=== PATIENT | female | born 1940 | race Two or more races ===

== ENCOUNTER 2017-10-12 11:36 | Emergency (ER) | payer OTHER ==
[~2017-10-12] VITALS: Ht 152.4 cm; Wt 57.2 kg
[~2017-10-12 11:36] MED LIST: ATEN-60; BACL10TA; CIME-52; CLOP75TA41 PO; DONE5TAB9; DOXY25TA19 PO; FEBU40TA PO; FER325T PO; FOLI1TAB6; HYDR200T36 PO; HYDR25TA4; LEFL20TA16 PO; LEVO13CA; LISI-275 PO; LORA-653 PO; OXYB5TAB62; TEMA15CA; TRAM50TA2 PO; VERA200C4 PO; [UNRECOGNIZED DRUG - CODE] PO; [UNRECOGNIZED DRUG - OTHER]
[2017-10-12 12:21] VITALS: BP 167/85
[2017-10-12] MEDS ORDERED: ACETAMINOPHEN 325 MG TAB PO ONE ×2 (13:07→13:15)
== END 2017-10-12 14:45 | disposition home or self-care (01) ==
LOC: ER 11:36
DX: S05.11XA Contusion of eyeball and orbital tissues, right eye, initial encounter (principal); R60.9 Edema, unspecified; I10 Essential (primary) hypertension; I25.10 Atherosclerotic heart disease of native coronary artery without angina pectoris; Z88.6 Allergy status to analgesic agent
CPT/HCPCS: 70486

== ENCOUNTER 2017-12-09 15:13 | Emergency (ER) | payer OTHER ==
[~2017-12-09] VITALS: Ht 149.9 cm; Wt 59.0 kg
[2017-12-09 15:55] VITALS: BP 137/65
[2017-12-09] MEDS ORDERED: cefTRIAXone SOD 1,000 MG VL IM ONE (16:15)
[2017-12-09] MEDS ORDERED: PHENAZOPYRIDINE HCL 100 MG TAB PO ONE (16:15)
== END 2017-12-09 16:45 | disposition home or self-care (01) ==
LOC: ER 15:13
DX: N39.0 Urinary tract infection, site not specified (principal); M19.90 Unspecified osteoarthritis, unspecified site; I25.10 Atherosclerotic heart disease of native coronary artery without angina pectoris; I10 Essential (primary) hypertension; Z79.899 Other long term (current) drug therapy; Z87.440 Personal history of urinary (tract) infections; Z88.8 Allergy status to other drugs, medicaments and biological substances; Z79.891 Long term (current) use of opiate analgesic
CPT/HCPCS: 81002; 96372; 99283; J0696

== ENCOUNTER 2017-12-27 11:15 | Emergency (ER) | payer OTHER ==
[~2017-12-27] VITALS: Ht 152.4 cm; Wt 59.0 kg
[2017-12-27 15:22] VITALS: BP 177/95
[2017-12-27] MEDS ORDERED: HYDROcodone-ACET 5/325MG TAB PO ONE (15:30)
== END 2017-12-27 16:23 | disposition home or self-care (01) ==
LOC: ER 11:19
DX: S60.212A Contusion of left wrist, initial encounter (principal); M19.90 Unspecified osteoarthritis, unspecified site; I10 Essential (primary) hypertension; I25.10 Atherosclerotic heart disease of native coronary artery without angina pectoris; Z88.6 Allergy status to analgesic agent; W19.XXXA Unspecified fall, initial encounter; Y93.89 Activity, other specified; Y92.89 Other specified places as the place of occurrence of the external cause; Y99.8 Other external cause status
CPT/HCPCS: 29125; 73110

== ENCOUNTER 2018-04-13 15:20 | Emergency (ER) | payer OTHER ==
[~2018-04-13] VITALS: Ht 154.9 cm; Wt 57.2 kg
[~2018-04-13 15:20] MED LIST changes: +OXYB5TAB24; -OXYB5TAB62
[2018-04-13 15:47] VITALS: BP 164/93
== END 2018-04-13 17:18 | disposition home or self-care (01) ==
LOC: ER 15:36
DX: S01.01XA Laceration without foreign body of scalp, initial encounter (principal); S93.402A Sprain of unspecified ligament of left ankle, initial encounter; I10 Essential (primary) hypertension; M19.90 Unspecified osteoarthritis, unspecified site; I25.10 Atherosclerotic heart disease of native coronary artery without angina pectoris; Z88.6 Allergy status to analgesic agent; Z87.440 Personal history of urinary (tract) infections; Z79.899 Other long term (current) drug therapy; X50.1XXA Overexertion from prolonged static or awkward postures, initial encounter; Y93.E9 Activity, other interior property and clothing maintenance; Y92.89 Other specified places as the place of occurrence of the external cause; Y99.8 Other external cause status
CPT/HCPCS: 12001; 70450

== ENCOUNTER 2018-04-22 11:23 | Emergency (ER) | payer OTHER ==
[~2018-04-22] VITALS: Ht 154.9 cm; Wt 59.0 kg
[2018-04-22 11:29] VITALS: BP 152/85
== END 2018-04-22 12:55 | disposition home or self-care (01) ==
LOC: ER 11:26
DX: S92.332A Displaced fracture of third metatarsal bone, left foot, initial encounter for closed fracture (principal); S92.342A Displaced fracture of fourth metatarsal bone, left foot, initial encounter for closed fracture; S92.352A Displaced fracture of fifth metatarsal bone, left foot, initial encounter for closed fracture; S82.892A Other fracture of left lower leg, initial encounter for closed fracture; M19.90 Unspecified osteoarthritis, unspecified site; I10 Essential (primary) hypertension; I25.10 Atherosclerotic heart disease of native coronary artery without angina pectoris; Z87.440 Personal history of urinary (tract) infections; Z48.02 Encounter for removal of sutures; Z88.6 Allergy status to analgesic agent; Z79.899 Other long term (current) drug therapy; W19.XXXA Unspecified fall, initial encounter; Y93.89 Activity, other specified; Y92.89 Other specified places as the place of occurrence of the external cause; Y99.8 Other external cause status
CPT/HCPCS: 29515; 73610; 73630

== ENCOUNTER 2018-11-11 10:49 | Emergency (ER) | payer OTHER ==
[~2018-11-11] VITALS: Ht 152.4 cm; Wt 54.4 kg
[2018-11-11 11:55] VITALS: BP 156/88
[2018-11-11] MEDS: ACETAMINOPHEN 325 MG TAB PO ONE ×2 (12:46→12:50)
== END 2018-11-11 12:58 | disposition home or self-care (01) ==
LOC: ER 10:57
DX: S46.912A Strain of unspecified muscle, fascia and tendon at shoulder and upper arm level, left arm, initial encounter (principal); S60.222A Contusion of left hand, initial encounter; M19.042 Primary osteoarthritis, left hand; I10 Essential (primary) hypertension; M19.90 Unspecified osteoarthritis, unspecified site; Z86.73 Personal history of transient ischemic attack (TIA), and cerebral infarction without residual deficits; Z88.6 Allergy status to analgesic agent; Z88.8 Allergy status to other drugs, medicaments and biological substances; Z79.899 Other long term (current) drug therapy; W01.0XXA Fall on same level from slipping, tripping and stumbling without subsequent striking against object, initial encounter; Y93.89 Activity, other specified; Y99.8 Other external cause status; Y92.89 Other specified places as the place of occurrence of the external cause
CPT/HCPCS: 73060; 73090; 73130

== ENCOUNTER 2018-12-29 10:37 | Inpatient (IN) | payer OTHER ==
[~2018-12-29] VITALS: Ht 152.4 cm; Wt 46.8 kg
[~2018-12-29 10:37] MED LIST changes: -DOXY25TA19 PO; +DOXY25TA21 PO; -LEVO13CA; +LEVO13CA2; -LORA-653 PO; +LORA0.5T11 PO
[2018-12-29 11:45] LABS: Basophils # (auto) 0.1 uL; Eosinophils # (auto) 0.2 uL; Hematocrit 35.1 % (36.0-46.0); Hemoglobin 11.8 g/dL (12.2-16.2); Lymphocytes # (auto) 0.9 uL; Lymphocytes % (auto) 24.3 % (10.0-50.0); Mean Corpuscular Hemoglobin 30.8 pg (28.0-32.0); Mean Corpuscular Hgb Conc. 33.5 g/dL (32.0-36.0); Monocytes # (auto) 0.4 uL; Monocytes % (auto) 11.2 % (0.0-12.0); Neutrophils # (auto) 2.1 uL; Neutrophils % (auto) 57.5 % (37.0-80.0); Platelet Count (auto) 199 10^3/uL (140-450); Red Blood Cells 3.82 10^6/uL (4.0-5.20); Red Cell Distribution Width 15.1 % (11.8-14.3); White Blood Cell 3.6 10^3/uL (4.4-10.8)
[2018-12-29 11:52] LABS: INR 1.15 (0.9-1.15)
[2018-12-29 12:01] LABS: Albumin 3.1 g/dL (3.4-5.0); Calcium 8.2 mg/dL (8.5-10.1)
[2018-12-29 12:07] LABS: BUN/Creatinine Ratio 12.5; Bilirubin, Total 0.4 mg/dL (0.2-1.0); Total Protein 6.4 g/dL (6.4-8.2)
[2018-12-29 12:26] LABS: Potassium 2.6 mmol/L (3.5-5.1)
[2018-12-29] MEDS ORDERED: POTASSIUM EFFERVESENT TAB 25 MEQ PO ONE ×2 (12:30→15:45)
[2018-12-29] MEDS ORDERED: traMADol HCL 50 MG TAB PO ONE (13:00)
[2018-12-29] MEDS ORDERED: FUROSEMIDE 40 MG/4 ML VIAL IV ONE (14:30)
[2018-12-29] MEDS ORDERED: POTASSIUM EFFERVESENT TAB 25 MEQ GT ONE (14:30)
[2018-12-29] MEDS ORDERED: LACTULOSE 20Gm/30ML SOLN PO PRN (15:00)
[2018-12-29] MEDS ORDERED: NITROGLYCERIN 0.4 MG SL TAB SL PRN (15:00)
[2018-12-29] MEDS ORDERED: MORPHINE SULF INJ 2 MG/ML SYRINGE 1ML IV PRN (15:00)
[2018-12-29 15:31] LABS: Urine Bacteria NONE SEEN /hpf (None Seen); Urine Blood Negative /uL (Negative); Urine Mucus FEW (None Seen); Urine WBC 9 /hpf (0 - 5)
--- NOTE | 2018-12-29 19:30 | NUR ---
Opening Shift Note Assumed care of patient, awake and alert. No S/S of distress/SOB or pain. Instructed on POC and to call for assist PRN, will continue to monitor for changes Q1hr and PRN.
[2018-12-29] MEDS: traMADol HCL 50 MG TAB PO PRN (20:26)
[2018-12-29] MEDS: DONEPEZIL HYDROCHLORIDE 5 MG TAB PO SCH (21:38)
[2018-12-29] MEDS: TEMAZEPAM 15 MG CAP PO PRN (21:38)
[2018-12-29] MEDS: CARVEDILOL 3.125 MG TAB PO SCH (21:40)
[2018-12-29] MEDS: VERAPAMIL HCL 200 MG PO SCH (21:42)
[2018-12-29 21:50] VITALS: BP 130/95
[2018-12-30 04:46] VITALS: BP 89/66
[2018-12-30] MEDS: LEVOTHYROXINE SODIUM 25 MCG TAB PO SCH (06:11)
[2018-12-30 06:36] LABS: Basophils # (auto) 0 uL; Basophils % (auto) 1.2 % (0.0-2.0); Eosinophils # (auto) 0.2 uL; Eosinophils % (auto) 5.5 % (0.0-7.0); Hematocrit 30.6 % (36.0-46.0); Hemoglobin 10.5 g/dL (12.2-16.2); Lymphocytes # (auto) 0.7 uL; Mean Corpuscular Hemoglobin 31.8 pg (28.0-32.0); Mean Corpuscular Hgb Conc. 34.3 g/dL (32.0-36.0); Mean Corpuscular Volume 92.6 fL (80.0-100.0); Monocytes # (auto) 0.5 uL; Monocytes % (auto) 16.4 % (0.0-12.0); Neutrophils # (auto) 1.8 uL; Neutrophils % (auto) 54.9 % (37.0-80.0); Nucleated Red Blood Cells % 0.1 %; Platelet Count (auto) 153 10^3/uL (140-450); Red Cell Distribution Width 15.3 % (11.8-14.3); White Blood Cell 3.2 10^3/uL (4.4-10.8)
[2018-12-30 06:52] LABS: Albumin 2.8 g/dL (3.4-5.0); Potassium 3.7 mmol/L (3.5-5.1)
[2018-12-30 06:55] LABS: BUN/Creatinine Ratio 12.2; Bilirubin, Total 0.4 mg/dL (0.2-1.0); Calcium 7.7 mg/dL (8.5-10.1); Total Protein 5.7 g/dL (6.4-8.2)
[2018-12-30 07:50] VITALS: BP 95/59
--- NOTE | 2018-12-30 07:50 | NUR ---
OPENING SHIFT NOTE PATIENT LAYING IN BED WITH EYES CLOSED CHEST RISE AND FALL VISUALIZED. BED IN LOWEST LOCKED POSITION CALL LIGHT WITH IN REACH. BOARD UPDATED WILL CONTINUE TO MONITOR
[2018-12-30 08:00] VITALS: BP 90/65
--- NOTE | 2018-12-30 09:39 | NUR ---
REASSESSED BP106/65MMHG
[2018-12-30] MEDS: LEVOFLOXACIN 500MG 100 ML IV SCH (09:50)
[2018-12-30] MEDS: PANTOPRAZOLE 40 MG TAB PO SCH (09:51)
[2018-12-30] MEDS: LISINOPRIL 5 MG TAB PO SCH (09:52)
[2018-12-30] MEDS: CLOPIDOGREL BISULFATE 75 MG TAB PO SCH (09:52)
[2018-12-30] MEDS: ENOXAPARIN SOD 40 MG/0.4 ML SYRINGE SC SCH (09:54)
[2018-12-30] MEDS: CARVEDILOL 3.125 MG TAB PO SCH ×2 (09:54→21:22)
[2018-12-30] MEDS: NITROGLYCERIN 0.2MG/HR TOPICAL PATCH TD SCH (09:55)
[2018-12-30] MEDS ORDERED: FUROSEMIDE 40 MG/4 ML VIAL IV SCH (10:00)
[2018-12-30] MEDS ORDERED: POTASSIUM CHL 20 Meq TABLET PO SCH (10:00)
[2018-12-30] MEDS ORDERED: FENO160T8 PO (11:24)
[2018-12-30] MEDS ORDERED: BUSP5TAB51 PO (11:24)
[2018-12-30] MEDS ORDERED: ESCI10TA PO (11:24)
[2018-12-30] MEDS ORDERED: LEVO25TA6 PO (11:24)
[2018-12-30] MEDS ORDERED: FESO4TAB PO (11:24)
[2018-12-30] MEDS ORDERED: HYDR-4188 OR (11:24)
[2018-12-30] MEDS ORDERED: CLON0.1T PO (11:24)
--- NOTE | 2018-12-30 12:11 | NUR ---
RESPIRATORY CULTURE SENT
[2018-12-30 12:27] VITALS: BP 90/65
[2018-12-30] MEDS: traMADol HCL 50 MG TAB PO PRN ×2 (14:33→21:20)
[2018-12-30 17:06] VITALS: BP 101/74
--- NOTE | 2018-12-30 18:46 | NUR ---
END OF SHIFT NOTE PATIENT AWAKE AND ALERT DENIES ANY PAIN, SOB OR DISTRESS. ASSISTED PATIENT WITH TV. BED IN LOWEST LOCKED POSITION CALL LIGHT WITHIN REACH. WILL ENDORSE CARE TO NOC RN
[2018-12-30 21:13] VITALS: BP 122/76
[2018-12-30] MEDS: TEMAZEPAM 15 MG CAP PO PRN (21:20)
[2018-12-30] MEDS: DONEPEZIL HYDROCHLORIDE 5 MG TAB PO SCH (21:21)
[2018-12-30] MEDS: VERAPAMIL HCL 200 MG PO SCH (21:22)
[2018-12-31 05:07] VITALS: BP 103/68
[2018-12-31] MEDS: traMADol HCL 50 MG TAB PO PRN ×2 (05:39→20:11)
[2018-12-31] MEDS: LEVOTHYROXINE SODIUM 25 MCG TAB PO SCH (06:15)
--- NOTE | 2018-12-31 07:35 | NUR ---
OPENING SHIFT NOTE PATIENT AWAKE ALERT AND ORIENTED X4 IN BED EATING BREAKFAST. VERBALIZED UNDERSTANDING DAYS POC. PATIENT STATED SHE IS FEELING BETTER TODAY DENYING ANY PAIN, SOB OR ANY DISTRESS. BED IS IN LOWEST LOCKED POSITION CALL LIGHT WITH IN REACH WILL CONTINUE TO MONITOR
[2018-12-31 08:00] VITALS: BP 123/79
[2018-12-31 08:03] LABS: Calcium 7.9 mg/dL (8.5-10.1); Potassium 3.6 mmol/L (3.5-5.1)
[2018-12-31] MEDS: LEVOFLOXACIN 500MG 100 ML IV SCH (10:46)
[2018-12-31] MEDS: FUROSEMIDE 40 MG/4 ML VIAL IV SCH ×2 (10:46→21:32)
[2018-12-31] MEDS: NITROGLYCERIN 0.2MG/HR TOPICAL PATCH TD SCH (10:47)
[2018-12-31] MEDS: ENOXAPARIN SOD 40 MG/0.4 ML SYRINGE SC SCH (10:47)
[2018-12-31] MEDS: CLOPIDOGREL BISULFATE 75 MG TAB PO SCH (10:48)
[2018-12-31] MEDS: PANTOPRAZOLE 40 MG TAB PO SCH (10:48)
[2018-12-31] MEDS: POTASSIUM CHL 20 Meq TABLET PO SCH ×2 (10:48→21:32)
[2018-12-31] MEDS: LISINOPRIL 5 MG TAB PO SCH (10:48)
[2018-12-31] MEDS: CARVEDILOL 3.125 MG TAB PO SCH ×2 (10:49→21:33)
[2018-12-31 12:30] VITALS: BP 110/67
[2018-12-31 17:15] VITALS: BP 128/78
--- NOTE | 2018-12-31 18:51 | NUR ---
END OF SHIFT NOTE PATIENT AWAKE AND ORIENTED X4 EATING DINNER. DENIES PAIN, SOB AND ANY DISTRESS. BED IN LOWEST LOCKED POSITION CALL LIGHT WITH IN REACH. ENDORSE CARE TO NOC RN
--- NOTE | 2018-12-31 19:15 | NUR ---
Opening Shift Note Assumed care of patient, awake and alert. No S/S of distress/SOB or pain. bed side report with day RN Aura. Instructed on POC and to call for assist PRN, will continue to monitor for changes Q1hr and PRN. Bed locked and in lowest position, HOB elevated. Safety Precautions in place
[2018-12-31 21:19] VITALS: BP 122/86
[2018-12-31] MEDS: TEMAZEPAM 15 MG CAP PO PRN (21:33)
[2018-12-31] MEDS: VERAPAMIL HCL 200 MG PO SCH (21:33)
[2018-12-31] MEDS: DONEPEZIL HYDROCHLORIDE 5 MG TAB PO SCH (21:33)
--- NOTE | 2018-12-31 22:49 | NUR ---
FAMILY ON THE PHONE Password was provided, informed pt status and informed that for results MD has to discuss with patient first, i am unable to release test results. family member understood will continue to monitor pt.
[2019-01-01] VITALS (8 sets, daily range): BP systolic 122–146; BP diastolic 78–92
--- NOTE | 2019-01-01 | NUR ---
PT ROUNDS PT resting,pt on oxygen no s/sx's of distress or sob noted
[2019-01-01] MEDS: LEVOTHYROXINE SODIUM 25 MCG TAB PO SCH (06:14)
[2019-01-01] MEDS: traMADol HCL 50 MG TAB PO PRN ×2 (06:15→14:04)
--- NOTE | 2019-01-01 06:37 | NUR ---
HOSPITALIST TELEPHONE ORDER Informed pt complain of SOB a few times, TELEPHONE ORDER READ BACK Albuterol 2.5 Q3 PRN Atrovent 0.5 Q3 PRN
--- NOTE | 2019-01-01 06:54 | NUR ---
CLOSING NOTE PT resting no s/sx;s of distress or sob noted, pt on oxygen will endorse report to day RN
--- NOTE | 2019-01-01 07:00 | NUR ---
Respiratory note: PT AWAKE, AND ALERT. NO RESPIRATORY DISTRESS NOTED. SPO2 97% ON 3L NC, HR 67, RR 18, BS CLEAR T/O. PRN MEDNEB TX NOT INDICATED AT THIS TIME. PT INFORMED TO PUSH CALL BUTTON IF INCREASED WOB, SOB, OR WHEEZING OCCURS.
--- NOTE | 2019-01-01 07:35 | NUR ---
Opening Shift Note Assumed care of patient, awake and alert. No S/S of distress/SOB or pain reported at this time, Instructed on POC and to call for assist PRN, bed alarm activated and call light within reach, able to demonstrate how to call for assist, You present, patent and free of any kinds, will continue to monitor for changes Q1hr and PRN.
[2019-01-01] MEDS: CLOPIDOGREL BISULFATE 75 MG TAB PO SCH (10:39)
[2019-01-01] MEDS: ENOXAPARIN SOD 40 MG/0.4 ML SYRINGE SC SCH (10:39)
[2019-01-01] MEDS: POTASSIUM CHL 20 Meq TABLET PO SCH ×2 (10:39→22:05)
[2019-01-01] MEDS: LEVOFLOXACIN 500MG 100 ML IV SCH (10:39)
[2019-01-01] MEDS: FUROSEMIDE 40 MG/4 ML VIAL IV SCH ×2 (10:39→22:06)
[2019-01-01] MEDS: PANTOPRAZOLE 40 MG TAB PO SCH (10:40)
[2019-01-01] MEDS: CARVEDILOL 3.125 MG TAB PO SCH ×2 (10:40→22:04)
[2019-01-01] MEDS: LISINOPRIL 5 MG TAB PO SCH (10:40)
[2019-01-01] MEDS: NITROGLYCERIN 0.2MG/HR TOPICAL PATCH TD SCH (10:41)
--- NOTE | 2019-01-01 12:38 | NUR ---
NUTRITION ASSESSMENT NOTES Please refer to link notes of nutrition screen form filed under the intervention section of the plan of care for further details. Est. Needs: 1450 kcal to 1750 kcal (25-30 kcal/kgBW), 46 gms to 58 gms pro (0.8-1.0 gms/kgBW). Will continue to monitor pertinent labs and reassess nutrient need prn Thank you. Addendum: 01/01/19 at [address] Amended: Links added.
--- NOTE | 2019-01-01 13:10 | NUR ---
MD AT BEDSIDE DISCUSSING POC WITH PT AND FAMILY, ECHO RESULTS DISCUSSED, CONT CARE
--- NOTE | 2019-01-01 19:10 | NUR ---
OPEN SHIFT NOTE PATIENT IS ALERT AND ORIENTED X4 SITTING UP IN BED, NO COMPLAINTS OF PAIN AT THIS TIME. RIGHT WRIST 20 GAUGE IS INTACT AND PATENT, SALINE LOCKED. PATIENT ON 1L NC. AND JIM IS INTACT AND PATENT. POC DISCUSSED WITH PATIENT AND QUESTIONS ANSWERED. BED IS LOCKED IN LOWEST POSITION WITH SIDE RAILS UP X2 FOR SAFETY. CALL LIGHT IS WITHIN REACH AND PATIENT IS ENCOURAGED TO CALL IF NEEDS ANYTHING. WILL CONTINUE TO ROUND Q1HR AND PRN.
[2019-01-01] MEDS: SPIRONOLACTONE 25 MG TAB PO SCH (19:25)
--- NOTE | 2019-01-01 19:29 | NUR ---
Respiratory note: PRN MED NEB TX NOT INDICATED AT THIS TIME. PT ON 1 L/M NC, NO SOB OR ANY OTHER ACUTE RESPIRATORY DISTRESS NOTICED. WILL CONTINUE TO MONITOR PT.
--- NOTE | 2019-01-01 20:52 | NUR ---
RT PAGED PATIENT REQUEST PRN BREATHING TREATMENT
[2019-01-01] MEDS: ALBUTEROL SULF 2.5 MG/0.5ML(0.5%) NEB SOLN NEB PRN (21:06)
[2019-01-01] MEDS: IPRATROPIUM BROM 0.5 MG/2.5ML INH SOL NEB PRN (21:06)
[2019-01-01] MEDS: VERAPAMIL HCL 200 MG PO SCH (22:00)
[2019-01-01] MEDS: DONEPEZIL HYDROCHLORIDE 5 MG TAB PO SCH (22:05)
--- NOTE | 2019-01-02 00:04 | NUR ---
RT PAGED PER PATIENT REQUEST, RESPIRATORY PAGED FOR PRN BREATHING TREATMENT.
[2019-01-02] MEDS: IPRATROPIUM BROM 0.5 MG/2.5ML INH SOL NEB PRN (00:49)
[2019-01-02] MEDS: ALBUTEROL SULF 2.5 MG/0.5ML(0.5%) NEB SOLN NEB PRN (00:49)
[2019-01-02 05:00] VITALS: BP 139/91
--- NOTE | 2019-01-02 06:10 | NUR ---
Respiratory note: PT IS AWAKE AND ALERT. NO RESPIRATORY DISTRESS NOTED. SPO2 98% ON RA, HR 67, RR 16, BS CLEAR T/O. PRN TX NOT INDICATED AT THIS TIME. PT INFORMED TO PUSH CALL BUTTON IF INCREASED WOB, SOB, OR WHEEZING OCCURS.
[2019-01-02] MEDS: LEVOTHYROXINE SODIUM 25 MCG TAB PO SCH (06:34)
[2019-01-02] MEDS: SPIRONOLACTONE 25 MG TAB PO SCH ×2 (06:34→18:42)
[2019-01-02 07:33] VITALS: BP 140/84
[2019-01-02 10:27] VITALS: BP 110/69
[2019-01-02] MEDS: FUROSEMIDE 40 MG/4 ML VIAL IV SCH ×2 (10:35→21:49)
[2019-01-02] MEDS: PANTOPRAZOLE 40 MG TAB PO SCH (10:36)
[2019-01-02] MEDS: ENOXAPARIN SOD 40 MG/0.4 ML SYRINGE SC SCH (10:36)
[2019-01-02] MEDS: CARVEDILOL 3.125 MG TAB PO SCH ×2 (10:36→21:50)
[2019-01-02] MEDS: NITROGLYCERIN 0.2MG/HR TOPICAL PATCH TD SCH (10:36)
[2019-01-02] MEDS: POTASSIUM CHL 20 Meq TABLET PO SCH ×2 (10:36→21:50)
[2019-01-02] MEDS: CLOPIDOGREL BISULFATE 75 MG TAB PO SCH (10:36)
[2019-01-02] MEDS: LEVOFLOXACIN 500MG 100 ML IV SCH (10:37)
[2019-01-02] MEDS: LISINOPRIL 5 MG TAB PO SCH (10:37)
[2019-01-02] MEDS: traMADol HCL 50 MG TAB PO PRN ×2 (11:02→18:44)
[2019-01-02 13:00] VITALS: BP 97/58
[2019-01-02 18:04] VITALS: BP 113/65
--- NOTE | 2019-01-02 19:15 | NUR ---
OPEN SHIFT NOTE PATIENT IS ALERT AND ORIENTED X4 ON 1L NC, RIGHT WRIST 20 GAUGE IS INTACT AND PATENT. PATIENT STATES 7/10 PAIN IN LEGS, BUT IS FEELING BETTER. POC DISCUSSED AND QUESTIONS ANSWERED. BED IS LOCKED IN LOWEST POSITION WITH SIDE RAILS UP X2 FOR SAFETY. CALL LIGHT IS WITHIN REACH AND PATIENT IS ENCOURAGED TO CALL IF NEEDS ANYTHING. WILL CONTINUE TO ROUND Q1HR AND PRN.
[2019-01-02] MEDS: DONEPEZIL HYDROCHLORIDE 5 MG TAB PO SCH (21:49)
[2019-01-02] MEDS: VERAPAMIL HCL 200 MG PO SCH (21:50)
[2019-01-02 22:00] VITALS: BP 104/56
[2019-01-02] MEDS: TEMAZEPAM 15 MG CAP PO PRN (23:15)
[2019-01-03 05:00] VITALS: BP 105/67
[2019-01-03 05:58] LABS: Basophils # (auto) 0 uL; Basophils % (auto) 0.9 % (0.0-2.0); Eosinophils # (auto) 0.1 uL; Eosinophils % (auto) 3.5 % (0.0-7.0); Hematocrit 37.2 % (36.0-46.0); Hemoglobin 12.6 g/dL (12.2-16.2); Lymphocytes # (auto) 0.6 uL; Mean Corpuscular Hemoglobin 31.1 pg (28.0-32.0); Mean Corpuscular Hgb Conc. 33.8 g/dL (32.0-36.0); Mean Corpuscular Volume 92.1 fL (80.0-100.0); Monocytes # (auto) 0.6 uL; Monocytes % (auto) 15.6 % (0.0-12.0); Neutrophils # (auto) 2.4 uL; Nucleated Red Blood Cells % 0.1 %; Platelet Count (auto) 145 10^3/uL (140-450); Red Blood Cells 4.04 10^6/uL (4.0-5.20); Red Cell Distribution Width 14.4 % (11.8-14.3); White Blood Cell 3.7 10^3/uL (4.4-10.8)
[2019-01-03] MEDS: SPIRONOLACTONE 25 MG TAB PO SCH ×2 (06:16→18:12)
[2019-01-03] MEDS: LEVOTHYROXINE SODIUM 25 MCG TAB PO SCH (06:16)
[2019-01-03 06:31] LABS: Potassium 3.6 mmol/L (3.5-5.1)
[2019-01-03 06:48] LABS: BUN/Creatinine Ratio 13.4; Calcium 9.3 mg/dL (8.5-10.1)
--- NOTE | 2019-01-03 08:57 | NUR ---
RT NOTE: PRN BREATHING TX. NOT INDICATED AT THIS TIME. PT. HR. 70, RR 16, POX 95% R/A. NO S/S OF RESPIRATORY DISTRESS NOTED.
[2019-01-03 09:00] VITALS: BP 129/70
--- NOTE | 2019-01-03 09:09 | NUR ---
assessment Patient is a 78 year old female who is alert and oriented. Prior to admission patient lived home with family and functioned with assistance from her [facility] caregiver Deena Lee [phone] who is patients granddaughter. Patient informed me she has a cane, fww, and a wheelchair for home use. Patient informed me her PCP is Dr Pena. Patient informed me she has good family support. Patient feels safe returning home on discharge. Patient has no post discharge needs at this time. Addendum: 01/03/19 at 0911 by Berta DE LA GARZA Amended: Links added.
[2019-01-03] MEDS: NITROGLYCERIN 0.2MG/HR TOPICAL PATCH TD SCH (10:00)
[2019-01-03] MEDS: CLOPIDOGREL BISULFATE 75 MG TAB PO SCH (10:14)
[2019-01-03] MEDS: LEVOFLOXACIN 500MG 100 ML IV SCH (10:14)
[2019-01-03] MEDS: FUROSEMIDE 40 MG/4 ML VIAL IV SCH (10:14)
[2019-01-03] MEDS: CARVEDILOL 3.125 MG TAB PO SCH (10:14)
[2019-01-03] MEDS: ENOXAPARIN SOD 40 MG/0.4 ML SYRINGE SC SCH (10:15)
[2019-01-03] MEDS: LISINOPRIL 5 MG TAB PO SCH (10:15)
[2019-01-03] MEDS: PANTOPRAZOLE 40 MG TAB PO SCH (10:15)
[2019-01-03] MEDS: POTASSIUM CHL 20 Meq TABLET PO SCH ×2 (10:16→21:39)
[2019-01-03] MEDS: traMADol HCL 50 MG TAB PO PRN ×2 (11:31→21:43)
[2019-01-03 13:00] VITALS: BP 97/48
[2019-01-03 16:53] VITALS: BP 102/75
[2019-01-03] MEDS: FUROSEMIDE 40 MG TAB PO SCH (18:13)
--- NOTE | 2019-01-03 19:10 | NUR ---
Opening Shift Note Received report from Laureen BOWLES. Assumed care of patient, awake and alert, family at bedside. No S/S of distress/SOB or pain. Instructed on POC and to call for assist PRN, will continue to monitor for changes Q1hr and PRN.
[2019-01-03 20:00] VITALS: BP 104/62
--- NOTE | 2019-01-03 21:20 | NUR ---
Respiratory note: PT ASSESSED FOR PRN MED NEB TX. HR 61, RR 18, SPO2 96% 0N R/A. NO SIGNS OF ANY RESPIRATORY DISTRESS NOTED. ADVISED PT TO CALL IF TX IS NEEDED.
[2019-01-03] MEDS: DONEPEZIL HYDROCHLORIDE 5 MG TAB PO SCH (21:39)
[2019-01-03] MEDS: VERAPAMIL HCL 200 MG PO SCH (21:40)
[2019-01-03] MEDS: CARVEDILOL 12.5 MG TAB PO SCH (21:40)
[2019-01-04] VITALS (7 sets, daily range): BP systolic 86–118; BP diastolic 53–76
[2019-01-04] MEDS ORDERED: CALCIUM CARB 500 MG CHEW TAB PO ONE (00:45)
[2019-01-04] MEDS: TEMAZEPAM 15 MG CAP PO PRN (01:44)
[2019-01-04] MEDS: SPIRONOLACTONE 25 MG TAB PO SCH ×2 (06:05→18:00)
[2019-01-04] MEDS: LEVOTHYROXINE SODIUM 25 MCG TAB PO SCH (06:05)
[2019-01-04] MEDS: FUROSEMIDE 40 MG TAB PO SCH ×2 (06:05→18:00)
[2019-01-04] MEDS: traMADol HCL 50 MG TAB PO PRN (06:06)
--- NOTE | 2019-01-04 09:00 | NUR ---
Respiratory note: PT ASSESSED FOR PRN MEDNEB TX. NO RESPIRATORY DISTRESS NOTED AT THIS TIME. SPO2 92% ON RA HR 60 RR 14 B/S DIMINISHED. PT AWARE TO HAVE RT PAGED IF THEY BECOME SOB.
[2019-01-04] MEDS: ENOXAPARIN SOD 40 MG/0.4 ML SYRINGE SC SCH (10:00)
[2019-01-04] MEDS: CLOPIDOGREL BISULFATE 75 MG TAB PO SCH (10:00)
[2019-01-04] MEDS: POTASSIUM CHL 20 Meq TABLET PO SCH ×2 (10:00→21:46)
[2019-01-04] MEDS: LISINOPRIL 5 MG TAB PO SCH (10:00)
[2019-01-04] MEDS: PANTOPRAZOLE 40 MG TAB PO SCH (10:00)
[2019-01-04] MEDS: NITROGLYCERIN 0.2MG/HR TOPICAL PATCH TD SCH (10:00)
[2019-01-04] MEDS: CARVEDILOL 12.5 MG TAB PO SCH ×2 (10:00→21:46)
--- NOTE | 2019-01-04 19:15 | NUR ---
Opening Shift Note Received report from Laureen BOWLES. Assumed care of patient, awake and alert, sittig on the edge of the bed. No S/S of distress/SOB or pain. Instructed on POC and to call for assist PRN, will continue to monitor for changes Q1hr and PRN.
[2019-01-04] MEDS: DONEPEZIL HYDROCHLORIDE 5 MG TAB PO SCH (21:46)
[2019-01-04] MEDS: VERAPAMIL HCL 200 MG PO SCH (21:47)
--- NOTE | 2019-01-04 22:35 | NUR ---
PT ASSESSED FOR PRN MEDNEB TX. NO RESPIRATORY DISTRESS NOTED AT THIS TIME. SPO2 95% ON ROOM AIR HR 62 RR 16 B/S CLEAR. PT AWARE TO HAVE RT PAGED IF THEY BECOME SOB.
[2019-01-05 00:23] VITALS: BP 124/64
[2019-01-05] MEDS: traMADol HCL 50 MG TAB PO PRN ×2 (00:24→22:13)
[2019-01-05 05:38] VITALS: BP 104/61
[2019-01-05] MEDS: SPIRONOLACTONE 25 MG TAB PO SCH ×2 (06:00→17:51)
[2019-01-05] MEDS: FUROSEMIDE 40 MG TAB PO SCH ×2 (06:00→17:52)
[2019-01-05] MEDS: LEVOTHYROXINE SODIUM 25 MCG TAB PO SCH (06:44)
[2019-01-05 07:37] VITALS: BP 104/62
[2019-01-05 08:28] VITALS: BP 97/58
[2019-01-05] MEDS: CARVEDILOL 12.5 MG TAB PO SCH ×2 (10:00→22:12)
[2019-01-05] MEDS: NITROGLYCERIN 0.2MG/HR TOPICAL PATCH TD SCH (10:00)
[2019-01-05] MEDS: LISINOPRIL 5 MG TAB PO SCH (10:00)
--- NOTE | 2019-01-05 10:35 | NUR ---
Respiratory note: ASSESSED PT FOR PRN MEDNEB TX. HR 56, RR 14, POX 93% ON 1L NC. BREATH SOUNDS CLEAR, NO S/S OF RESPIRATORY DISTRESS. MEDNEB TX NOT INDICATED AT THIS TIME. WROTE RT NAME AND PAGER NUMBER ON WHITEBOARD, ADVISED PT TO CALL FOR RT IF NEEDED.
[2019-01-05] MEDS: POTASSIUM CHL 20 Meq TABLET PO SCH ×2 (10:52→22:13)
[2019-01-05] MEDS: PANTOPRAZOLE 40 MG TAB PO SCH (10:53)
--- NOTE | 2019-01-05 11:39 | NUR ---
Nutrition Follow-up Notes Wt.: 42.2 kg Pt sleeping with no family by beside. per records pt to have thoracentesis on Tuesday. per nursing pt with no distress noted. pt is currently on 2 gm na diet with fluid restriction of 1200 ml with fair PO of avg 60% x 5 per RN doc Est. Needs: 1450 kcal to 1750 kcal (25-30 kcal/kgBW), 46 gms to 58 gms pro (0.8-1.0 gms/kgBW). Will continue to monitor pertinent labs and reassess nutrient need prn Labs: CREAT 1.27 H. rest lab wnl Skin: Erwin scale 19, low risk skin intact per RN doc GI: Pt had 1 BM yesterday per kineseologist. PES: Altered nutrition related lab values r/t acute/chronic medical condition aeb hypoglycemia, hypernatremia, elev. Cr, hypocalcemia and mild hypoalbuminemia Will continue to monitor PO intake, skin status, pertinent labs and weight trend. F/u in 3-5 days. Rec.: 1.) Consider Cardiac: 2 gms Na, Low Chol, Low Fat diet 2.) If Albumin level continues trending down, consider Prostat 1 pkt BID.3.) Continue close supervision and feeding assistance prn during meals 4.) Refer to RD for further nutrition education and weight monitoring upon discharged. 5.) Continue current plan of care
[2019-01-05 12:44] VITALS: BP 113/66
--- NOTE | 2019-01-05 14:48 | NUR ---
I faxed clinical information to [employer] including order for Life Vest.
[2019-01-05 16:48] VITALS: BP 90/46
--- NOTE | 2019-01-05 19:15 | NUR ---
Opening Shift Note Received report from bro RN. Assumed care of patient, awake and alert, lying in bed. No S/S of distress/SOB or pain. Instructed on POC and to call for assist PRN, will continue to monitor for changes Q1hr and PRN. Addendum: 01/06/19 at 0014 by HEATH OLIVO RN RN ADDITION: Bed in lowest locked position, side rails up x2, call light within reach.
--- NOTE | 2019-01-05 20:00 | NUR ---
PT ASSESSED, ON 2L NC, NO SOB NOTED. BS CLEAR/DIMINISHED
--- NOTE | 2019-01-05 20:47 | NUR ---
Regarding [employer] Received call from Ziyad at [employer]. Information for patient's life vest received and currently being processed. Per [facility], [employer] should arrive on Tuesday as patient's insurance is not available to be contacted until Tuesday. Phone number for Ziyad .
[2019-01-05] MEDS: VERAPAMIL HCL 200 MG PO SCH (22:00)
[2019-01-05] MEDS: SACUBITRIL-VALSARTAN 24mg/26mg TAB PO SCH (22:00)
[2019-01-05] MEDS: DONEPEZIL HYDROCHLORIDE 5 MG TAB PO SCH (22:13)
[2019-01-06 00:17] VITALS: BP 100/58
[2019-01-06] MEDS: SPIRONOLACTONE 25 MG TAB PO SCH ×2 (05:13→18:10)
[2019-01-06] MEDS: FUROSEMIDE 40 MG TAB PO SCH ×2 (05:13→18:10)
[2019-01-06] MEDS: LEVOTHYROXINE SODIUM 25 MCG TAB PO SCH (06:04)
[2019-01-06 06:08] VITALS: BP 97/57
--- NOTE | 2019-01-06 07:28 | NUR ---
Closing Note Patient lying in bed, eyes closed, respirations even and unlabored, appears asleep. No s/s of distress. Care endorsed to dayshift RN.
--- NOTE | 2019-01-06 07:45 | NUR ---
Patient in bed, asleep. No acute distress noted. Walker at bedside.
[2019-01-06 09:00] VITALS: BP 138/63
[2019-01-06] MEDS: NITROGLYCERIN 0.2MG/HR TOPICAL PATCH TD SCH (10:00)
[2019-01-06] MEDS ORDERED: ENOXAPARIN SOD 30 MG/0.3 ML SYRINGE SC SCH (10:00)
[2019-01-06] MEDS ORDERED: LISINOPRIL 10 MG TAB PO SCH (10:00)
[2019-01-06] MEDS: POTASSIUM CHL 20 Meq TABLET PO SCH ×2 (10:12→22:58)
[2019-01-06] MEDS: PANTOPRAZOLE 40 MG TAB PO SCH (10:12)
[2019-01-06] MEDS: traMADol HCL 50 MG TAB PO PRN (10:13)
[2019-01-06] MEDS: SACUBITRIL-VALSARTAN 24mg/26mg TAB PO SCH ×2 (10:13→22:00)
[2019-01-06] MEDS: CARVEDILOL 12.5 MG TAB PO SCH (10:13)
--- NOTE | 2019-01-06 10:13 | NUR ---
Patient complained of headache, at 8/10 at this time. Ultram PO given for headache.
[2019-01-06] MEDS ORDERED: TEMAZEPAM 15 MG CAP PO PRN (10:15)
--- NOTE | 2019-01-06 10:18 | NUR ---
Dr. Grubbs at bedside. explained to patient the plan for Thoracentesis and Stress Test. MD is aware patient's heart rate <60, will discontinue Verapamil.
[2019-01-06] MEDS ORDERED: MORPHINE SULF INJ 2 MG/ML SYRINGE 1ML IV PRN (10:30)
--- NOTE | 2019-01-06 11:43 | NUR ---
Respiratory note: ASSESSED PATIENT FOR PRN BREATHING TX, PATIENT IS AWAKE AND ALERT. NO RESPIRATORY DISTRESS NOTED. PATIENT IS ON ROOM AIR, SPO2 93%, HR 60, RR 18. NO BREATHING TX INDICATED AT THIS TIME, PT IS AWARE TO HAVE RT PAGED IF BREATHING TX IS NEEDED.
[2019-01-06] MEDS: ASPirin 81 mg TAB PO SCH (12:23)
[2019-01-06 13:00] VITALS: BP 149/71
--- NOTE | 2019-01-06 13:20 | NUR ---
Ziyad from [employer] came over, spoke with the patient. Ziyad to look for Dr. Grubbs to sign the form for [employer] for patient.
[2019-01-06 17:00] VITALS: BP 97/55
--- NOTE | 2019-01-06 19:22 | NUR ---
MIDLINE placement Patient/Patient significant other educated on need for MIDLINE placement. All risks and benefits explained and all questions and concerns addressed prior to procedure. Noted past medical history and allergies with no contraindications. INR and Plt counts within acceptable range. 4 fr MIDLINE inserted via left brachial vein using [employer] US and Tip Location System. Sterile technique with maximum barrier precautions utilized. Blood return obtained from the single lumen and it flushed easily with NS using proper technique. MIDLINE secured with Stat-lock; biodisc and occlusive dressing applied. Less than 5ml EBL noted during procedure. MIDLINE 20cm internally w/ 0cm externally. *Baseline Arm Circumference 24cm at 1cm above insertion site. MIDLINE lot # [id number]. Note:
--- NOTE | 2019-01-06 19:23 | NUR ---
OK to use MIDLINE Migue Rose notified now OK to use MIDLINE.
--- NOTE | 2019-01-06 19:25 | NUR ---
Opening Shift Note Received report from dayshift RN. Assumed care of patient, awake and alert, lying in bed. Bed in lowest locked position, side rails up x2, call light within reach. No S/S of distress/SOB or pain. Instructed on POC and to call for assist PRN, will continue to monitor for changes Q1hr and PRN.
--- NOTE | 2019-01-06 19:45 | NUR ---
IV removal IV to right wrist DC'd with clean sterile technique, catheter fully intact. Pressure dressing applied to site. Patient tolerated well. Midline to left upper arm still clean, dry, and patent. Will continue care.
[2019-01-06 22:37] VITALS: BP 137/76
[2019-01-06] MEDS: DONEPEZIL HYDROCHLORIDE 5 MG TAB PO SCH (22:57)
[2019-01-06] MEDS: ATORVASTATIN 20 MG TAB PO SCH (22:58)
[2019-01-06] MEDS: CARVEDILOL 3.125 MG TAB PO SCH (22:58)
--- NOTE | 2019-01-07 01:40 | NUR ---
PT SEEN SLEEPING IN BED ON 2L NC WITH SPO2 94%, BS CLEAR AND DIMINISHED. NO RESP DISTRESS NOTED. PRN NEB TX NOT GIVEN AT THIS TIME.
[2019-01-07 05:09] VITALS: BP 113/79
[2019-01-07] MEDS: SPIRONOLACTONE 25 MG TAB PO SCH ×2 (05:29→17:35)
--- NOTE | 2019-01-07 05:30 | NUR ---
Regarding morning medications Patient requesting morning medications early to allow for sleep. Will administer and continue to monitor.
[2019-01-07] MEDS: LEVOTHYROXINE SODIUM 25 MCG TAB PO SCH (05:33)
[2019-01-07] MEDS: FUROSEMIDE 40 MG TAB PO SCH ×2 (05:33→17:36)
[2019-01-07] MEDS: traMADol HCL 50 MG TAB PO PRN (05:34)
--- NOTE | 2019-01-07 07:05 | NUR ---
Closing Note Patient lying in bed, eyes closed, respirations even and unlabored, appears asleep. No s/s of distress. Care endorsed to dayshift RN.
--- NOTE | 2019-01-07 07:30 | NUR ---
Patient asleep, no acute distress noted. Walker at bedside. With bedside commode.
[2019-01-07 08:24] LABS: Basophils # (auto) 0 uL; Basophils % (auto) 0.7 % (0.0-2.0); Eosinophils # (auto) 0.1 uL; Eosinophils % (auto) 1.5 % (0.0-7.0); Hematocrit 39.5 % (36.0-46.0); Hemoglobin 13.4 g/dL (12.2-16.2); Lymphocytes # (auto) 0.7 uL; Lymphocytes % (auto) 16.3 % (10.0-50.0); Mean Corpuscular Volume 91.1 fL (80.0-100.0); Monocytes # (auto) 0.5 uL; Monocytes % (auto) 12.1 % (0.0-12.0); Neutrophils # (auto) 2.9 uL; Neutrophils % (auto) 69.4 % (37.0-80.0); Nucleated Red Blood Cells % 0.1 %; Platelet Count (auto) 141 10^3/uL (140-450); Red Blood Cells 4.33 10^6/uL (4.0-5.20); Red Cell Distribution Width 14.2 % (11.8-14.3); White Blood Cell 4.2 10^3/uL (4.4-10.8)
[2019-01-07 08:51] LABS: Albumin 3.4 g/dL (3.4-5.0); Calcium 9.4 mg/dL (8.5-10.1)
[2019-01-07 08:54] LABS: BUN/Creatinine Ratio 19.4; Bilirubin, Total 0.9 mg/dL (0.2-1.0); Total Protein 7.4 g/dL (6.4-8.2)
[2019-01-07 09:00] VITALS: BP 100/58
[2019-01-07] MEDS: ASPirin 81 mg TAB PO SCH (10:00)
[2019-01-07] MEDS: NITROGLYCERIN 0.2MG/HR TOPICAL PATCH TD SCH (10:00)
[2019-01-07] MEDS: PANTOPRAZOLE 40 MG TAB PO SCH (10:19)
[2019-01-07] MEDS: SACUBITRIL-VALSARTAN 24mg/26mg TAB PO SCH ×2 (10:20→22:00)
[2019-01-07] MEDS: POTASSIUM CHL 20 Meq TABLET PO SCH ×2 (10:20→22:48)
[2019-01-07] MEDS: CARVEDILOL 3.125 MG TAB PO SCH ×2 (10:20→22:47)
--- NOTE | 2019-01-07 12:20 | NUR ---
New IV line started on the right forearm, 24 Gauge, intact and patent. Patient able to tolerate it. Patient needs a second IV line for Stress Test tomorrow.
[2019-01-07 13:00] VITALS: BP 113/67
--- NOTE | 2019-01-07 14:30 | NUR ---
Family at bedside.
[2019-01-07 17:00] VITALS: BP 129/70
[2019-01-07 22:26] VITALS: BP 122/78
[2019-01-07] MEDS: ATORVASTATIN 20 MG TAB PO SCH (22:48)
[2019-01-07] MEDS: DONEPEZIL HYDROCHLORIDE 5 MG TAB PO SCH (22:48)
[2019-01-07] MEDS: ALBUTEROL SULF 2.5 MG/0.5ML(0.5%) NEB SOLN NEB PRN (23:30)
[2019-01-07] MEDS: IPRATROPIUM BROM 0.5 MG/2.5ML INH SOL NEB PRN (23:30)
[2019-01-08 03:31] VITALS: BP 95/60
[2019-01-08] MEDS: FUROSEMIDE 40 MG TAB PO SCH ×2 (05:54→18:09)
[2019-01-08] MEDS: LEVOTHYROXINE SODIUM 25 MCG TAB PO SCH (05:54)
[2019-01-08] MEDS: SPIRONOLACTONE 25 MG TAB PO SCH ×2 (05:54→18:09)
--- NOTE | 2019-01-08 05:57 | NUR ---
Respiratory note: PT AWAKE, AND ALERT. NO RESPIRATORY DISTRESS NOTED. SPO2 97% ON RA, HR 60, RR 18, BS CLEAR T/O. PRN TX NOT INDICATED AT THIS TIME. PT INFORMED TO PUSH CALL BUTTON IF INCREASED WOB, SOB, OR WHEEZING OCCUR. RN AT BEDSIDE.
[2019-01-08 06:13] VITALS: BP 134/69
--- NOTE | 2019-01-08 07:20 | NUR ---
Patient in bed, awake, oriented x4, no acute distress noted. On NPO.
--- NOTE | 2019-01-08 07:25 | NUR ---
Closing Note Patient lying in bed, eyes closed, respirations even and unlabored, appears asleep. No s/s of distress. Care endorsed to dayshift WILBUR. Addendum: 01/08/19 at 0741 by HEATH OLIVO RN RN CORRECTION: Time of note 07:20.
--- NOTE | 2019-01-08 08:00 | NUR ---
Patient has generalized weakness noted.
[2019-01-08 09:00] VITALS: BP 124/56
--- NOTE | 2019-01-08 09:10 | NUR ---
Patient asleep, no acute distress noted.
[2019-01-08] MEDS: ASPirin 81 mg TAB PO SCH (09:25)
[2019-01-08] MEDS: SACUBITRIL-VALSARTAN 24mg/26mg TAB PO SCH ×2 (09:26→22:11)
[2019-01-08] MEDS: NITROGLYCERIN 0.2MG/HR TOPICAL PATCH TD SCH (09:26)
[2019-01-08] MEDS: PANTOPRAZOLE 40 MG TAB PO SCH (09:26)
[2019-01-08] MEDS: POTASSIUM CHL 20 Meq TABLET PO SCH ×2 (09:33→22:12)
[2019-01-08] MEDS: CARVEDILOL 3.125 MG TAB PO SCH ×2 (09:33→22:12)
--- NOTE | 2019-01-08 09:39 | NUR ---
David from [facility] called, stated the patient is not answering the phone. Patient is sleepy. David to call back later.
--- NOTE | 2019-01-08 10:00 | NUR ---
Identification Technician Joyce Bergeron called. Planned Thoracentesis and Stress Test as per doctor's progress notes. Waiting for doctor to put in the order.
--- NOTE | 2019-01-08 10:55 | NUR ---
Dr. Toribio made aware patient has Thoracentesis planned but there's no orders put in yet. ordered to call Radiology.
--- NOTE | 2019-01-08 10:56 | NUR ---
Called Radiology. Spoke with WILBUR Chavarria if the Thoracentesis will be done today, Dr. Toribio will put in the order. Aura said she will speak to Dr. Lynn, she will call me back. Dr. Toribio made aware.
--- NOTE | 2019-01-08 11:45 | NUR ---
Dr. Toribio at bedside.
[2019-01-08 13:00] VITALS: BP 121/71
--- NOTE | 2019-01-08 13:04 | NUR ---
behaviour support teacher Aura called back. Aura said there's no orders for Thoracentesis yet, patient needs a new PTPTT. Will page Dr. Toribio.
--- NOTE | 2019-01-08 13:06 | NUR ---
Paged Dr. Toribio.
--- NOTE | 2019-01-08 13:19 | NUR ---
Called Dr. Toribio. made aware he did not put an order for Thoracentesis. Dr. Toribio gave a telephone order for Thoracentesis.
[2019-01-08 14:20] LABS: INR 1.03 (0.9-1.15); Partial Thromboplastin Time 27.9 sec (23.64-32.05)
--- NOTE | 2019-01-08 14:45 | NUR ---
I faxed authorization request for [employer] life vest to [employer].
--- NOTE | 2019-01-08 15:40 | NUR ---
Connie from Radiology called that Radiology Nurse leaves at 4:00 pm today, if there's a Nurse who will be at bedside the whole time at Room 215B for the Thoracentesis. Connie said to gather the supplies for Thoracentesis and has to be prepared at bedside. Informed Connie that I have four patient's today, I can't stay in the patient's room for the whole procedure if one of my other three patient's calls for me. Spoke with Charge Nurse Flora that Radiology Nurse leaves at 4:00 pm today as per Connie, no Nurse is available to be at bedside for the patient's Thoracentesis at Room 215B. Asked Connie if there's a Radiology Nurse tomorrow for Thoracentesis, Connie said she does not know if there's a Radiology Nurse tomorrow. Flora calls the Materials Unit for Vacu-container, not available as per Materials. Thoracentesis cannot be done today.
--- NOTE | 2019-01-08 15:50 | NUR ---
Tech from Nuclear Medicine to orange picker the patient for Cardiolite Multiple. Patient in the bathroom at this time.
--- NOTE | 2019-01-08 16:15 | NUR ---
Tech from Nuclear Medicine left. Patient still in the bathroom.
--- NOTE | 2019-01-08 16:20 | NUR ---
Bladimir from Nuclear Medicine called back. Bladimir made aware the Tech left because the patient took a while in the bathroom, I was told that Stress Test will not be done today, patient had Jello and cranberry juice. Bladimir said it's okay that patient ate, the first of the three-part of Stress Test will be done today.
--- NOTE | 2019-01-08 16:26 | NUR ---
Vidal Crain from Nuclear Medicine at bedside to transfer the patient to Nuclear Medicine. Daughter at bedside.
--- NOTE | 2019-01-08 16:45 | NUR ---
Request for peanut butter and jelly sandwich sent via fax to [employer].
[2019-01-08 17:00] VITALS: BP 119/76
--- NOTE | 2019-01-08 17:05 | NUR ---
Patient back to room from Nuclear Medicine. Patient has body weakness noted.
[2019-01-08 22:00] VITALS: BP 115/64
--- NOTE | 2019-01-08 22:10 | NUR ---
Respiratory note: PT SEEN AND ASSESSED FOR PRN MED NEB TX AT 2210. TX NOT INDICATED AT THIS TIME. PT STATED THAT SHE HAS NO ISSUES BREATHING RIGHT NOW. BREATH SOUNDS WERE CLEAR AND DIMINISHED BILATERALLY. HR 72 RR 16 POX 99% ON 1L NASAL CANNULA. PT AWARE TO CALL FOR RT IF ANY DISTRESS OCCURS.
[2019-01-08] MEDS: ATORVASTATIN 20 MG TAB PO SCH (22:11)
[2019-01-08] MEDS: DONEPEZIL HYDROCHLORIDE 5 MG TAB PO SCH (22:11)
[2019-01-09] VITALS (7 sets, daily range): BP systolic 89–148; BP diastolic 59–80
--- NOTE | 2019-01-09 | NUR ---
REMINDED PATIENT ON THE NOTHING BY MOUTH STATUS, PATIENT VERBALIZED UNDERSTANDING.
--- NOTE | 2019-01-09 06:00 | NUR ---
ROUNDS PATIENT IS ALERT AND AWAKE, RESTING IN BED WITH EYES CLOSED, NO DISTRESS NOTED.
[2019-01-09] MEDS: LEVOTHYROXINE SODIUM 25 MCG TAB PO SCH (06:21)
[2019-01-09] MEDS: FUROSEMIDE 40 MG TAB PO SCH (06:21)
[2019-01-09] MEDS: SPIRONOLACTONE 25 MG TAB PO SCH ×2 (06:21→18:31)
[2019-01-09 06:59] LABS: Basophils # (auto) 0 uL; Basophils % (auto) 0.6 % (0.0-2.0); Eosinophils # (auto) 0.1 uL; Eosinophils % (auto) 1.6 % (0.0-7.0); Hematocrit 42.2 % (36.0-46.0); Hemoglobin 14.1 g/dL (12.2-16.2); Lymphocytes # (auto) 1.2 uL; Lymphocytes % (auto) 23.7 % (10.0-50.0); Mean Corpuscular Hemoglobin 30.5 pg (28.0-32.0); Mean Corpuscular Hgb Conc. 33.5 g/dL (32.0-36.0); Mean Corpuscular Volume 91.1 fL (80.0-100.0); Monocytes # (auto) 0.6 uL; Monocytes % (auto) 12.4 % (0.0-12.0); Neutrophils % (auto) 61.7 % (37.0-80.0); Nucleated Red Blood Cells % 0.2 %; Platelet Count (auto) 166 10^3/uL (140-450); Red Blood Cells 4.63 10^6/uL (4.0-5.20); White Blood Cell 4.9 10^3/uL (4.4-10.8)
[2019-01-09 07:51] LABS: Calcium 9.4 mg/dL (8.5-10.1); Potassium 4.7 mmol/L (3.5-5.1)
--- NOTE | 2019-01-09 08:15 | NUR ---
Linda from Ultrasound called that there's no Radiology Nurse today, if I will be available to be at bedside the whole time during Thoracentesis. Lnida made aware I will inform my Charge Nurse because I have four patient's today, if the other three patient's call, somebody has to attend to them. Will call back Ultrasound.
[2019-01-09] MEDS ORDERED: ADENOSINE 39 MG in GIVE UN-DILUTED 0 ML IV STA (08:32)
--- NOTE | 2019-01-09 08:50 | NUR ---
Called Nuclear Medicine. Spoke with Bladimir that Nuclear Medicine called earlier that they will take the patient for the second part of Stress Test but patient is still in the room. Bladimir said patient stated she's too weak to get up from bed to wheelchair, they will take the patient via bed to Nuclear Medicine later.
--- NOTE | 2019-01-09 08:55 | NUR ---
Charge Nurse Flora made aware there's no Radiology Nurse today. Thoracentesis has to be done at bedside.
--- NOTE | 2019-01-09 09:15 | NUR ---
Assisted the patient with bedpan.
--- NOTE | 2019-01-09 09:39 | NUR ---
Called Bladimir at Nuclear Medicine that patient was able to walk with walker with assist from physical therapist. Bladimir to send a Tech to pick pulling machine tender the patient for the second part of Stress Test.
--- NOTE | 2019-01-09 09:45 | NUR ---
Charge Nurse Flora said she will assign another pie crust mixer to be at bedside during the Thoracentesis at Room 215B, she will call Ultrasound/Radiology.
[2019-01-09] MEDS: SACUBITRIL-VALSARTAN 24mg/26mg TAB PO SCH ×2 (10:00→21:56)
[2019-01-09] MEDS: PANTOPRAZOLE 40 MG TAB PO SCH (10:00)
[2019-01-09] MEDS: ASPirin 81 mg TAB PO SCH (10:00)
[2019-01-09] MEDS: NITROGLYCERIN 0.2MG/HR TOPICAL PATCH TD SCH (10:00)
--- NOTE | 2019-01-09 10:00 | NUR ---
Dr. linda came over, made aware Thoracentesis was not done yesterday because there was no Radiology Nurse available. Thoracentesis will be done at bedside today, second and third part of Stress test will be done today.
--- NOTE | 2019-01-09 10:22 | NUR ---
Patient off unit, taken to Nuclear Medicine for Stress Test.
--- NOTE | 2019-01-09 10:30 | NUR ---
Felt Pad Cutter came over looking for the patient. Patient at Nuclear Medicine for Stress Test.
--- NOTE | 2019-01-09 11:30 | NUR ---
Called Ultrasound that patient is back to room from Stress Test. Ultrasound to call me back when the Radiology doctor is ready.
[2019-01-09] MEDS: CARVEDILOL 3.125 MG TAB PO SCH ×2 (11:39→21:57)
[2019-01-09] MEDS: POTASSIUM CHL 20 Meq TABLET PO SCH ×2 (11:39→21:56)
--- NOTE | 2019-01-09 12:34 | NUR ---
Dr. Lynn from Radiology came over for Thoracentesis. No fluid in the patient's lungs. No need for Thoracentesis. Charge Nurse at bedside.
--- NOTE | 2019-01-09 13:10 | NUR ---
Patient had a bowel movement on bed. Large, soft, light brown stools noted. Cleaned the patient, changed the gown.
--- NOTE | 2019-01-09 14:25 | NUR ---
Patient had another bowel movement on bed. Moderate soft, yellowish brown stools noted. Cleaned the patient. Patient went to the bathroom with walker on standby assist. Daughter at bedside.
--- NOTE | 2019-01-09 14:35 | NUR ---
Dr. Toribio at bedside. Patient in the bathroom. MD made aware patient has periods of incontinence of urine and stools. Three bowel movements today. Dr. Toribio ordered C-diff, UA, Stool Bacterial Culture and Rat Exterminator Consult for SNF placement.
--- NOTE | 2019-01-09 15:30 | NUR ---
Specimen bottles for urine and stools provided. Explained to patient to press the call light when she has the urge to urinate or have bowel movement. Hat placed on the toilet bowl. Daughter at bedside.
--- NOTE | 2019-01-09 15:51 | NUR ---
I called [facility] [phone] and left message for case assembler Yasmin asking for authorization for [employer], awaiting return call. Addendum: 01/09/19 at 1555 by Joyce Bergeron RN I called Ziyad with [employer] to make him aware that the authorization needed to come from [employer] and that I was waiting to hear back from them.
--- NOTE | 2019-01-09 16:09 | NUR ---
Met with pt and Daughter, Chasity Lee, to ascertain whether pt wants to go down the hill for rehab. The pt has not made a definite decision but the daughter is in favor of it. The pt is alert and oriented and understands it is her choice. A bed will be secured.
--- NOTE | 2019-01-09 16:23 | NUR ---
re-assessment Per consult SNF placement. MD order has been sent to Alex Manuel and Laeh Avila Waiting for reply back now. Addendum: 01/09/19 at 1623 by Berta Sanches Amended: Links added.
--- NOTE | 2019-01-09 19:00 | NUR ---
Endorsed to shift mgr RN that patient has orders for UA, Stool Bacterial Culture and C-diff; specimen bottle provided to patient.
--- NOTE | 2019-01-09 19:20 | NUR ---
Opening Shift Note Received report from josesito Rose RN. Assumed care of patient, awake and alert. No S/S of distress/SOB or pain. Instructed on POC and to call for assist PRN, will continue to monitor for changes Q1hr and PRN. Bed placed in lowest position, bed alarm turned on and call light within reach.
--- NOTE | 2019-01-09 21:45 | NUR ---
Patient is c/o nausea and vomiting. Will give nausea medication.
[2019-01-09] MEDS: ATORVASTATIN 20 MG TAB PO SCH (21:56)
[2019-01-09] MEDS: DONEPEZIL HYDROCHLORIDE 5 MG TAB PO SCH (21:56)
[2019-01-09] MEDS: PROMETHAZINE HCL 25 MG/ML 1ML IV PRN (21:58)
[2019-01-09] MEDS: traMADol HCL 50 MG TAB PO PRN (22:09)
--- NOTE | 2019-01-09 22:15 | NUR ---
Respiratory note: PT SEEN AND ASSESSED FOR PRN MED NEB TX AT 2215. TX NOT INDICATED AT THIS TIME. PT DENIES ANY RESPIRATORY DISTRESS. BREATH SOUNDS WERE CLEAR AND DIMINISHED BILATERALLY. HR 64 RR 16 POX 96% ON 2L NASAL CANNULA. PT AWARE TO CALL FOR RT IF ANY DISTRESS OCCURS.
[2019-01-10 05:13] LABS: Urine Bacteria NONE SEEN /hpf (None Seen); Urine Blood Negative /uL (Negative); Urine Specific Gravity 1.012 (1.001-1.035); Urine WBC 41 /hpf (0 - 5)
[2019-01-10 05:45] VITALS: BP 101/65
[2019-01-10] MEDS: SPIRONOLACTONE 25 MG TAB PO SCH ×2 (06:39→17:47)
[2019-01-10] MEDS: LEVOTHYROXINE SODIUM 25 MCG TAB PO SCH (06:39)
--- NOTE | 2019-01-10 07:30 | NUR ---
OPENING NOTE ASSUMED CARE OF PT. ALERT AND ORIENTED. NO SIGNS OF SOB/DISTRESS NOTED. PT DENIES ANY PAIN. BED SET TO LOWEST POSITION/LOCKED. BEDSIDE RAILS UP X2. CALL LIGHT WITHIN REACH. INSTRUCTED PT TO CALL FOR ASSISTANCE. DISCUSSED POC. WILL CONTINUE TO MONITOR Q1HR AND PRN.
--- NOTE | 2019-01-10 08:42 | NUR ---
I called [employer] Scouring Pads Supervisor Yasmin Murray [phone] and left a second message (no return call from 1st message left yesterday) asking for authorization for [employer]-awaiting return call.
[2019-01-10 09:20] VITALS: BP 91/59
[2019-01-10] MEDS: NITROGLYCERIN 0.2MG/HR TOPICAL PATCH TD SCH (10:00)
[2019-01-10] MEDS: SACUBITRIL-VALSARTAN 24mg/26mg TAB PO SCH (10:00)
[2019-01-10] MEDS: CARVEDILOL 3.125 MG TAB PO SCH (10:00)
[2019-01-10] MEDS: POTASSIUM CHL 20 Meq TABLET PO SCH (10:07)
[2019-01-10] MEDS: ASPirin 81 mg TAB PO SCH (10:07)
[2019-01-10] MEDS: PANTOPRAZOLE 40 MG TAB PO SCH (10:07)
--- NOTE | 2019-01-10 10:58 | NUR ---
Faxed SNF order to [facility] and [facility] requesting authorization for SNF and transportation-I also called [facility] and [facility] and left messages asking for authorization for SNF and for transportation.
--- NOTE | 2019-01-10 11:34 | NUR ---
Nutrition Follow-up Notes Wt.: 46.8 kg Pt sleeping with no family by beside. per records pt s/p stress test. per nursing pt with no distress noted. pt is currently on 2 gm na diet with fluid restriction of 1200 ml with inadeuqte PO of < 50% x 5 per RN doc Est. Needs: 1450 kcal to 1750 kcal (25-30 kcal/kgBW), 46 gms to 58 gms pro (0.8-1.0 gms/kgBW). 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 PES: Altered nutrition related lab values r/t acute/chronic medical condition aeb hypoglycemia, hypernatremia, elev. Cr, hypocalcemia and mild hypoalbuminemia Will continue to monitor PO intake, skin status, pertinent labs and weight trend. F/u in 3-5 days. Rec.: 1.) Consider Cardiac: 2 gms Na, Low Chol, Low Fat diet 2.) If Albumin level continues trending down, consider Prostat 1 pkt BID.3.) Continue close supervision and feeding assistance prn during meals 4.) Refer to RD for further nutrition education and weight monitoring upon discharged. 5.) Continue current plan of care
--- NOTE | 2019-01-10 11:47 | NUR ---
LEFT MESSAGE WITH DEBBIE AT DR. RODRÍGUEZ OFFICE. DR. MANZANARES REQUESTING STRESS TEST RESULT. AWAITING CALL BACK.
[2019-01-10 12:27] VITALS: BP 93/49
--- NOTE | 2019-01-10 12:48 | NUR ---
I received a message from Yasmin at [facility] has been approved with auth # [id number]. I also received a message from Shantell coroando [place] letting me know that she is working on the authorization numbers for SNF and transportation-she will give me a call back.
--- NOTE | 2019-01-10 15:47 | NUR ---
I received a call from [facility]-authorization number for Leah is [id number]-[facility] call [phone] extension [phone].
--- NOTE | 2019-01-10 15:52 | NUR ---
re-assessment Per Clair coronado [facility] ph:[phone] fx: [phone] Pt has been accepted to room 102 B and the accepting MD is Dr Crews. Still needing Auth. Joyce BOWLES CM working on auth. Addendum: 01/10/19 at 1554 by Berta DE LA GARZA Amended: Links added.
--- NOTE | 2019-01-10 15:55 | NUR ---
re-assessment Per Clair at [facility] has changed to 318A. Patients son Adolfo who is at bedside said he will transport patient to [place]. I asked patient if she agrees and she said yes. Patient verbalized understanding and agreed to discharge plan to [place] nursing and son Adolfo to transport. Addendum: 01/10/19 at 1604 by Berta DE LA GARZA Amended: Links added.
--- NOTE | 2019-01-10 16:33 | NUR ---
GRANDDAUGHTER AT NURSES STATION. PER GRANDDAUGHTER PATIENT SON SHANNON WILL BE PROVIDE TRANSPORTATION TO [facility].
[2019-01-10 16:35] VITALS: BP 93/49
[2019-01-10 16:51] VITALS: BP 103/56
--- NOTE | 2019-01-10 17:48 | NUR ---
[facility] TRANSFERR[facility] WILL BE COMING TO BRING LIFE VEST TO PATIENT TODAY. ETA [phone].
--- NOTE | 2019-01-10 18:36 | NUR ---
Discharge instructions given to patient and family as MD ordered. All questions and concerns addressed with patient and family. Patient and family verbalized understanding. Patient discharged with left upper arm midline. Medication reconciliation form completed and copy given to patient. Transfer paperwork give to family, instructed to give to Leah upon arriving.
--- NOTE | 2019-01-10 18:57 | NUR ---
CALL REPORT TO [facility] .
--- NOTE | 2019-01-10 19:10 | NUR ---
ENDORSED CARE TO [facility].
--- NOTE | 2019-01-10 19:15 | NUR ---
Received report from josesito Rodriges RN. Patient is ambulating to the bathroom to get ready and clean up. No distress noted. [employer] staff waiting for patient for instructions regarding the use and management of zoll vest. Family at bedside getting instructions regarding Zoll Vest. Will monitor
[2019-01-10] MEDS: PROMETHAZINE HCL 25 MG/ML 1ML IV PRN (19:33)
--- NOTE | 2019-01-10 19:41 | NUR ---
Respiratory note: WENT IN TO ASSESS PATIENT FOR PRN TX. FAMILY AND RN AT BEDSIDE GETTING PATIENT READY FOR DISCHARGE. NO DISTRESS NOTED.
--- NOTE | 2019-01-10 20:05 | NUR ---
Discharge instructions given as ordered. Encourage to follow up with PMD as instructed. All questions and concerns addressed. Patient verbalized understanding. Medication reconciliation form completed and copy given to patient. Midline intact and left with patient. Telemetry unit returned to ICU. Patient has Zoll life Vest on. Patient taken to vehicle via wheelchair with all personal belongings, accompanied by staff and family member. No distress noted at time of departure.
== END 2019-01-10 20:05 | DRG 291 ==
LOC: ER 10:37 → TELE 10:38 → TELE-CENTR 17:56
PROVIDERS: ADMIT Internal Medicine; ATTEND Internal Medicine
DX: I13.0 Hypertensive heart and chronic kidney disease with heart failure and stage 1 through stage 4 chronic kidney disease, or unspecified chronic kidney disease (principal); N17.0 Acute kidney failure with tubular necrosis; I50.43 Acute on chronic combined systolic (congestive) and diastolic (congestive) heart failure; E44.0 Moderate protein-calorie malnutrition; N39.0 Urinary tract infection, site not specified; J91.8 Pleural effusion in other conditions classified elsewhere; E87.6 Hypokalemia; I25.10 Atherosclerotic heart disease of native coronary artery without angina pectoris; E78.5 Hyperlipidemia, unspecified; N18.3 Chronic kidney disease, stage 3 (moderate); M19.90 Unspecified osteoarthritis, unspecified site; E03.9 Hypothyroidism, unspecified; I27.20 Pulmonary hypertension, unspecified; I25.82 Chronic total occlusion of coronary artery; F03.90 Unspecified dementia, unspecified severity, without behavioral disturbance, psychotic disturbance, mood disturbance, and anxiety; D64.9 Anemia, unspecified; I08.0 Rheumatic disorders of both mitral and aortic valves; F32.9 Major depressive disorder, single episode, unspecified; Z68.20 Body mass index [BMI] 20.0-20.9, adult; Z79.02 Long term (current) use of antithrombotics/antiplatelets; Z82.49 Family history of ischemic heart disease and other diseases of the circulatory system; Z87.891 Personal history of nicotine dependence; Z79.899 Other long term (current) drug therapy; Z88.5 Allergy status to narcotic agent; Z88.8 Allergy status to other drugs, medicaments and biological substances; Z79.82 Long term (current) use of aspirin
CPT/HCPCS: 36415; 71045; 71046; 76604; 78452; 80048; 80053; 81001; 82550; 83880; 84484; 85025; 85379; 85610; 85730; 87070; 87205; 93005; 93017; 93306; 93970; 94640; 96374; 97110; 97116; 97163; 97530; G0378; J0153; J1956

== ENCOUNTER 2019-02-02 19:01 | Inpatient (IN) | payer OTHER ==
[~2019-02-02] VITALS: Ht 134.6 cm; Wt 45.0 kg
[~2019-02-02 19:01] MED LIST changes: -ATEN-60; -BACL10TA; +BUSP5TAB51 PO; -CIME-52; +CLON0.1T PO; -CLOP75TA41 PO; -DONE5TAB9; +ESCI10TA PO; -FEBU40TA PO; +FENO160T8 PO; +FESO4TAB PO; +HYDR-4188 OR; -HYDR25TA4; -LEFL20TA16 PO; +LEVO25TA6 PO; -LORA0.5T11 PO; -OXYB5TAB24; -TEMA15CA; -[UNRECOGNIZED DRUG - CODE] PO; -[UNRECOGNIZED DRUG - OTHER]
[2019-02-02 20:08] LABS: Basophils # (auto) 0 uL; Basophils % (auto) 0.7 % (0.0-2.0); Eosinophils # (auto) 0.1 uL; Eosinophils % (auto) 3.1 % (0.0-7.0); Hematocrit 35.2 % (36.0-46.0); Hemoglobin 11.6 g/dL (12.2-16.2); Lymphocytes # (auto) 0.9 uL; Lymphocytes % (auto) 21.1 % (10.0-50.0); Mean Corpuscular Hemoglobin 30.6 pg (28.0-32.0); Mean Corpuscular Hgb Conc. 33.1 g/dL (32.0-36.0); Mean Corpuscular Volume 92.3 fL (80.0-100.0); Monocytes # (auto) 0.4 uL; Monocytes % (auto) 8.6 % (0.0-12.0); Neutrophils # (auto) 2.8 uL; Neutrophils % (auto) 66.5 % (37.0-80.0); Nucleated Red Blood Cells % 0.1 %; Platelet Count (auto) 148 10^3/uL (140-450); Red Blood Cells 3.81 10^6/uL (4.0-5.20); Red Cell Distribution Width 15.1 % (11.8-14.3); White Blood Cell 4.2 10^3/uL (4.4-10.8)
[2019-02-02 20:28] LABS: Alanine Aminotransferase 24 U/L (13-56); Anion Gap 9 (5-15); Aspartate Aminotransferase 35 U/L (15-37); BUN/Creatinine Ratio 15.5; Blood Urea Nitrogen 31 mg/dL (7-18); Calcium 8.7 mg/dL (8.5-10.1); Carbon Dioxide 25 mmol/L (21-32); Chloride 107 mmol/L (98-107); GFR African American 31 mL/min; GFR Non-African American 26 mL/min; Glucose 83 mg/dL (74-106); Magnesium 2.5 mg/dL (1.6-2.6); Sodium 141 mmol/L (136-145)
[2019-02-02 20:38] LABS: Alkaline Phosphatase 67 U/L (45-117); Bilirubin, Total 0.3 mg/dL (0.2-1.0); Total Protein 7.4 g/dL (6.4-8.2)
[2019-02-02 21:41] LABS: Urine Bacteria NONE SEEN /hpf (None Seen); Urine Blood Negative /uL (Negative); Urine Specific Gravity 1.012 (1.001-1.035); Urine WBC 1 /hpf (0 - 5)
[2019-02-02 21:50] LABS: INR 1.01 (0.9-1.15); Partial Thromboplastin Time 26.2 sec (23.64-32.05)
[2019-02-02] MEDS ORDERED: DEXTROSE (50%) 50ML SYRG IV ONE (22:30)
[2019-02-02] MEDS ORDERED: SODIUM CHLORIDE 0.9% 1,000 ML IV ONE (22:30)
[2019-02-02] MEDS ORDERED: SODIUM BICARBONATE 8.4 % INJ 50ML VIAL IV ONE (22:30)
[2019-02-02] MEDS ORDERED: InsuLIN REG 1unit/0.01ml Soln (100units/ml) IV ONE (22:30)
[2019-02-02] MEDS ORDERED: CALCIUM GLUC 4.65meq/50ml D5AE 50 ML IV ONE (22:30)
[2019-02-02] MEDS ORDERED: ZOLPIDEM TARTRATE 5 MG TAB PO ONE (23:45)
[2019-02-03] MEDS ORDERED: TEMAZEPAM 15 MG CAP PO ONE
[2019-02-03] MEDS ORDERED: ONDANSETRON HCL 4 MG/2 ML VIAL IV PRN (07:15)
[2019-02-03 08:02] LABS: Basophils # (auto) 0 uL; Basophils % (auto) 0.6 % (0.0-2.0); Eosinophils # (auto) 0.1 uL; Eosinophils % (auto) 3.6 % (0.0-7.0); Hematocrit 33.5 % (36.0-46.0); Hemoglobin 11.1 g/dL (12.2-16.2); Lymphocytes # (auto) 0.8 uL; Lymphocytes % (auto) 27.4 % (10.0-50.0); Mean Corpuscular Hemoglobin 30.8 pg (28.0-32.0); Mean Corpuscular Hgb Conc. 33.1 g/dL (32.0-36.0); Monocytes # (auto) 0.3 uL; Monocytes % (auto) 10.8 % (0.0-12.0); Neutrophils # (auto) 1.6 uL; Neutrophils % (auto) 57.6 % (37.0-80.0); Platelet Count (auto) 121 10^3/uL (140-450); Red Cell Distribution Width 14.9 % (11.8-14.3); White Blood Cell 2.8 10^3/uL (4.4-10.8)
[2019-02-03 08:19] LABS: BUN/Creatinine Ratio 17.8; Calcium 8.8 mg/dL (8.5-10.1); Potassium 5.3 mmol/L (3.5-5.1)
[2019-02-03] MEDS ORDERED: cloNIDine HCL 0.1 MG TAB PO SCH (10:00)
[2019-02-03] MEDS: busPIRone HCL 10 MG TAB PO SCH ×2 (10:11→22:03)
[2019-02-03] MEDS: PANTOPRAZOLE 40 MG TAB PO SCH (10:12)
[2019-02-03] MEDS ORDERED: DOPamine 1600MCG/ML D5W 250 ML IV ONE (11:31)
[2019-02-03] MEDS: DOPamine 1600MCG/ML D5W 250 ML IV SCH (11:53)
[2019-02-03] MEDS: traMADol HCL 50 MG TAB PO PRN ×2 (12:59→20:39)
[2019-02-03 21:51] LABS: Basophils # (auto) 0 uL; Basophils % (auto) 0.8 % (0.0-2.0); Eosinophils # (auto) 0.1 uL; Hematocrit 36.4 % (36.0-46.0); Hemoglobin 12.1 g/dL (12.2-16.2); Lymphocytes # (auto) 0.7 uL; Mean Corpuscular Hemoglobin 30.7 pg (28.0-32.0); Mean Corpuscular Hgb Conc. 33.3 g/dL (32.0-36.0); Mean Corpuscular Volume 92.2 fL (80.0-100.0); Monocytes # (auto) 0.7 uL; Monocytes % (auto) 12.4 % (0.0-12.0); Neutrophils % (auto) 71.8 % (37.0-80.0); Platelet Count (auto) 175 10^3/uL (140-450); Red Blood Cells 3.95 10^6/uL (4.0-5.20); Red Cell Distribution Width 14.5 % (11.8-14.3); White Blood Cell 5.6 10^3/uL (4.4-10.8)
[2019-02-03 22:09] LABS: Albumin 3.7 g/dL (3.4-5.0); Anion Gap 10 (5-15); Blood Urea Nitrogen 22 mg/dL (7-18); Calcium 8.7 mg/dL (8.5-10.1); Carbon Dioxide 22 mmol/L (21-32); Chloride 109 mmol/L (98-107); Glucose 195 mg/dL (74-106); Potassium 4.7 mmol/L (3.5-5.1); Sodium 141 mmol/L (136-145)
[2019-02-03 22:12] LABS: Alanine Aminotransferase 21 U/L (13-56); Aspartate Aminotransferase 30 U/L (15-37); BUN/Creatinine Ratio 15.1; GFR African American 45 mL/min; GFR Non-African American 37 mL/min
[2019-02-03 22:17] LABS: Alkaline Phosphatase 66 U/L (45-117); Bilirubin, Total 0.6 mg/dL (0.2-1.0); Total Protein 7.1 g/dL (6.4-8.2)
[2019-02-03] MEDS: TEMAZEPAM 15 MG CAP PO PRN (23:56)
[2019-02-04 05:37] LABS: Basophils # (auto) 0 uL; Basophils % (auto) 0.6 % (0.0-2.0); Eosinophils # (auto) 0.1 uL; Eosinophils % (auto) 1.5 % (0.0-7.0); Hematocrit 33.4 % (36.0-46.0); Hemoglobin 11.4 g/dL (12.2-16.2); Lymphocytes # (auto) 0.8 uL; Mean Corpuscular Hemoglobin 31.4 pg (28.0-32.0); Mean Corpuscular Hgb Conc. 34.2 g/dL (32.0-36.0); Mean Corpuscular Volume 91.8 fL (80.0-100.0); Monocytes # (auto) 0.8 uL; Monocytes % (auto) 15.8 % (0.0-12.0); Neutrophils # (auto) 3.2 uL; Neutrophils % (auto) 65.1 % (37.0-80.0); Platelet Count (auto) 144 10^3/uL (140-450); Red Blood Cells 3.65 10^6/uL (4.0-5.20); Red Cell Distribution Width 14.4 % (11.8-14.3)
[2019-02-04 05:55] LABS: Alanine Aminotransferase 18 U/L (13-56); Albumin 3.4 g/dL (3.4-5.0); Anion Gap 7 (5-15); Aspartate Aminotransferase 26 U/L (15-37); BUN/Creatinine Ratio 15.8; Blood Urea Nitrogen 21 mg/dL (7-18); Calcium 8.4 mg/dL (8.5-10.1); Carbon Dioxide 23 mmol/L (21-32); Chloride 109 mmol/L (98-107); GFR African American 50 mL/min; GFR Non-African American 41 mL/min; Glucose 129 mg/dL (74-106); Sodium 139 mmol/L (136-145)
[2019-02-04 05:59] LABS: Alkaline Phosphatase 60 U/L (45-117); Bilirubin, Total 0.8 mg/dL (0.2-1.0); Total Protein 6.6 g/dL (6.4-8.2)
[2019-02-04] MEDS: LEVOTHYROXINE SODIUM 25 MCG TAB PO SCH (07:36)
[2019-02-04] MEDS: PANTOPRAZOLE 40 MG TAB PO SCH (10:33)
[2019-02-04] MEDS: busPIRone HCL 10 MG TAB PO SCH ×2 (10:33→21:56)
[2019-02-04] MEDS: DOPamine 1600MCG/ML D5W 250 ML IV SCH (12:00)
[2019-02-04] MEDS ORDERED: SODIUM CHLORIDE 0.9% 1,000 ML IV ONE (14:00)
[2019-02-04] MEDS: traMADol HCL 50 MG TAB PO PRN (18:24)
[2019-02-04] MEDS: TEMAZEPAM 15 MG CAP PO PRN (21:56)
[2019-02-05 05:16] LABS: Basophils # (auto) 0 uL; Basophils % (auto) 0.7 % (0.0-2.0); Eosinophils # (auto) 0.1 uL; Eosinophils % (auto) 2.1 % (0.0-7.0); Hematocrit 28.9 % (36.0-46.0); Lymphocytes # (auto) 0.8 uL; Lymphocytes % (auto) 23.6 % (10.0-50.0); Mean Corpuscular Hemoglobin 31.4 pg (28.0-32.0); Mean Corpuscular Hgb Conc. 34.6 g/dL (32.0-36.0); Mean Corpuscular Volume 90.8 fL (80.0-100.0); Monocytes # (auto) 0.4 uL; Monocytes % (auto) 12.2 % (0.0-12.0); Neutrophils # (auto) 2.1 uL; Neutrophils % (auto) 61.4 % (37.0-80.0); Platelet Count (auto) 113 10^3/uL (140-450); Red Blood Cells 3.18 10^6/uL (4.0-5.20); Red Cell Distribution Width 14.3 % (11.8-14.3); White Blood Cell 3.4 10^3/uL (4.4-10.8)
[2019-02-05 05:44] LABS: Albumin 2.8 g/dL (3.4-5.0); Calcium 8.1 mg/dL (8.5-10.1); Potassium 4.4 mmol/L (3.5-5.1)
[2019-02-05 05:50] LABS: BUN/Creatinine Ratio 19.3; Bilirubin, Total 0.7 mg/dL (0.2-1.0); Total Protein 6.2 g/dL (6.4-8.2)
[2019-02-05] MEDS: LEVOTHYROXINE SODIUM 25 MCG TAB PO SCH (07:00)
[2019-02-05] MEDS: traMADol HCL 50 MG TAB PO PRN ×3 (08:06→11:01)
[2019-02-05] MEDS: busPIRone HCL 10 MG TAB PO SCH ×2 (11:09→22:16)
[2019-02-05] MEDS: PANTOPRAZOLE 40 MG TAB PO SCH (11:09)
[2019-02-05] MEDS: DOPamine 1600MCG/ML D5W 250 ML IV SCH (11:45)
[2019-02-05] MEDS: Ensure Enlive Strawberry 8oz Bottle PO SCH ×2 (14:18→18:28)
[2019-02-05 14:55] LABS: Cholesterol 120 mg/dL (< 200); HDL Cholesterol 66 mg/dL (40-59); LDL Cholesterol 45 mg/dL (< 100); Triglycerides 73 mg/dL (< 150)
[2019-02-05] MEDS ORDERED: FUROSEMIDE 20 MG/2 ML VIAL IV SCH (18:00)
[2019-02-05] MEDS: FUROSEMIDE 20 MG TAB PO SCH (18:29)
[2019-02-05] MEDS: TEMAZEPAM 15 MG CAP PO PRN (22:16)
[2019-02-06] VITALS (18 sets, daily range): BP systolic 100–161; BP diastolic 52–83
[2019-02-06] MEDS: LEVOTHYROXINE SODIUM 25 MCG TAB PO SCH (06:42)
[2019-02-06] MEDS: FUROSEMIDE 20 MG TAB PO SCH ×2 (06:42→18:05)
[2019-02-06 06:43] LABS: Basophils # (auto) 0 uL; Basophils % (auto) 0.8 % (0.0-2.0); Eosinophils # (auto) 0.1 uL; Eosinophils % (auto) 2.8 % (0.0-7.0); Hematocrit 29.3 % (36.0-46.0); Hemoglobin 10.2 g/dL (12.2-16.2); Lymphocytes # (auto) 0.9 uL; Lymphocytes % (auto) 25.6 % (10.0-50.0); Mean Corpuscular Hemoglobin 31.4 pg (28.0-32.0); Mean Corpuscular Volume 89.8 fL (80.0-100.0); Monocytes # (auto) 0.4 uL; Monocytes % (auto) 11.8 % (0.0-12.0); Neutrophils # (auto) 2.1 uL; Platelet Count (auto) 104 10^3/uL (140-450); Red Blood Cells 3.26 10^6/uL (4.0-5.20); Red Cell Distribution Width 14.3 % (11.8-14.3); White Blood Cell 3.5 10^3/uL (4.4-10.8)
[2019-02-06 07:06] LABS: Alanine Aminotransferase 13 U/L (13-56); Albumin 2.8 g/dL (3.4-5.0); Anion Gap 7 (5-15); Aspartate Aminotransferase 22 U/L (15-37); Blood Urea Nitrogen 18 mg/dL (7-18); Calcium 8.3 mg/dL (8.5-10.1); Carbon Dioxide 23 mmol/L (21-32); Chloride 110 mmol/L (98-107); Glucose 77 mg/dL (74-106); Potassium 3.7 mmol/L (3.5-5.1); Sodium 140 mmol/L (136-145)
[2019-02-06 07:11] LABS: Alkaline Phosphatase 57 U/L (45-117); BUN/Creatinine Ratio 21.4; Bilirubin, Total 0.8 mg/dL (0.2-1.0); GFR African American 85 mL/min; GFR Non-African American 70 mL/min; Total Protein 6.2 g/dL (6.4-8.2)
[2019-02-06] MEDS: Ensure Enlive Strawberry 8oz Bottle PO SCH ×4 (08:48→18:29)
[2019-02-06] MEDS: PANTOPRAZOLE 40 MG TAB PO SCH (09:24)
[2019-02-06] MEDS: busPIRone HCL 10 MG TAB PO SCH ×2 (09:24→22:29)
[2019-02-06] MEDS ORDERED: LISINOPRIL 5 MG TAB PO ONE (11:15)
[2019-02-06] MEDS: traMADol HCL 50 MG TAB PO PRN (11:32)
[2019-02-06] MEDS: CARVEDILOL 3.125 MG TAB PO SCH (22:26)
[2019-02-06] MEDS: TEMAZEPAM 15 MG CAP PO PRN (22:34)
[2019-02-07 05:07] VITALS: BP 112/61
[2019-02-07 06:37] LABS: BUN/Creatinine Ratio 27.1; Calcium 8.4 mg/dL (8.5-10.1); Potassium 3.6 mmol/L (3.5-5.1)
[2019-02-07 06:40] LABS: Basophils # (auto) 0 uL; Basophils % (auto) 0.4 % (0.0-2.0); Eosinophils # (auto) 0.1 uL; Hematocrit 28.4 % (36.0-46.0); Hemoglobin 9.9 g/dL (12.2-16.2); Lymphocytes # (auto) 0.9 uL; Lymphocytes % (auto) 25.7 % (10.0-50.0); Mean Corpuscular Hemoglobin 31.2 pg (28.0-32.0); Mean Corpuscular Hgb Conc. 34.9 g/dL (32.0-36.0); Mean Corpuscular Volume 89.5 fL (80.0-100.0); Monocytes # (auto) 0.4 uL; Monocytes % (auto) 12.1 % (0.0-12.0); Neutrophils % (auto) 58.8 % (37.0-80.0); Platelet Count (auto) 113 10^3/uL (140-450); Red Blood Cells 3.17 10^6/uL (4.0-5.20); Red Cell Distribution Width 14.6 % (11.8-14.3); White Blood Cell 3.4 10^3/uL (4.4-10.8)
[2019-02-07] MEDS: LEVOTHYROXINE SODIUM 25 MCG TAB PO SCH (06:46)
[2019-02-07] MEDS: FUROSEMIDE 20 MG TAB PO SCH (06:47)
[2019-02-07 08:33] VITALS: BP 120/66
[2019-02-07] MEDS ORDERED: LISINOPRIL 5 MG TAB PO SCH (10:00)
[2019-02-07] MEDS: busPIRone HCL 10 MG TAB PO SCH (10:24)
[2019-02-07] MEDS: traMADol HCL 50 MG TAB PO PRN (10:24)
[2019-02-07] MEDS: CARVEDILOL 3.125 MG TAB PO SCH (10:24)
[2019-02-07] MEDS: PANTOPRAZOLE 40 MG TAB PO SCH (10:26)
[2019-02-07] MEDS: Ensure Enlive Strawberry 8oz Bottle PO SCH ×2 (10:29→12:05)
[2019-02-07] MEDS ORDERED: POTASSIUM CHL 20 Meq TABLET PO ONE (14:00)
[2019-02-07 14:22] VITALS: BP 93/64
[2019-02-07 14:29] VITALS: BP 93/64
== END 2019-02-07 16:15 | disposition home health service (06) | DRG 683 ==
LOC: ER 19:03 → TELE 19:04 → DOU IN ICU 02-06 03:58 → TELE-WESTW 02-06 17:09
PROVIDERS: ADMIT Nurse Practitioner Family; ATTEND Internal Medicine
PROC: 09QKXZZ Repair Nasal Mucosa and Soft Tissue, External Approach (ICD-10-PCS; principal; 2019-02-02)
DX: N17.9 Acute kidney failure, unspecified (principal); I13.0 Hypertensive heart and chronic kidney disease with heart failure and stage 1 through stage 4 chronic kidney disease, or unspecified chronic kidney disease; E44.1 Mild protein-calorie malnutrition; I50.22 Chronic systolic (congestive) heart failure; I95.89 Other hypotension; S02.2XXA Fracture of nasal bones, initial encounter for closed fracture; E86.0 Dehydration; E87.5 Hyperkalemia; I25.10 Atherosclerotic heart disease of native coronary artery without angina pectoris; N18.3 Chronic kidney disease, stage 3 (moderate); M06.9 Rheumatoid arthritis, unspecified; D69.6 Thrombocytopenia, unspecified; D63.8 Anemia in other chronic diseases classified elsewhere; E03.9 Hypothyroidism, unspecified; E78.5 Hyperlipidemia, unspecified; F03.90 Unspecified dementia, unspecified severity, without behavioral disturbance, psychotic disturbance, mood disturbance, and anxiety; W01.0XXA Fall on same level from slipping, tripping and stumbling without subsequent striking against object, initial encounter; I27.20 Pulmonary hypertension, unspecified; F32.9 Major depressive disorder, single episode, unspecified; M19.90 Unspecified osteoarthritis, unspecified site; I70.0 Atherosclerosis of aorta; Z79.899 Other long term (current) drug therapy; Z82.49 Family history of ischemic heart disease and other diseases of the circulatory system; Z88.5 Allergy status to narcotic agent; Z88.8 Allergy status to other drugs, medicaments and biological substances; Y93.89 Activity, other specified; Y92.89 Other specified places as the place of occurrence of the external cause; Y99.8 Other external cause status
CPT/HCPCS: 12013; 36415; 51702; 70450; 70486; 71045; 72125; 80048; 80053; 80061; 81001; 82533; 83735; 83880; 84132; 84443; 84484; 85025; 85610; 85730; 87040; 87081; 87086; 87088; 87186; 93005; 93886; 96365; 96375; 97110; 97116; 97163; 97530; G0378; J0610; J1815

== ENCOUNTER 2020-04-07 14:43 | Inpatient (IN) | payer OTHER ==
[~2020-04-07] VITALS: Ht 160 cm; Wt 52.4 kg
[~2020-04-07 14:43] MED LIST changes: -FOLI1TAB6; +FOLI1TAB6 PO; -LISI-275 PO
[2020-04-07] MEDS ORDERED: SODIUM CHLORIDE 0.9% 1,000 ML IV ONE ×2 (15:15)
[2020-04-07 16:01] LABS: Basophils # (auto) 0 10 ^3/uL (0-0.2); Basophils % (auto) 0.1 % (0.0-2.0); Eosinophils # (auto) 0 10 ^3/uL (0-0.8); Lymphocytes # (auto) 0.3 10 ^3/uL (0.4-5.4); Lymphocytes % (auto) 8.2 % (10.0-50.0); Mean Corpuscular Hemoglobin 32.7 pg (28.0-32.0); Mean Corpuscular Hgb Conc. 31.9 g/dL (32.0-36.0); Mean Corpuscular Volume 102.4 fL (80.0-100.0); Monocytes # (auto) 0.5 10 ^3/uL (0-1.3); Monocytes % (auto) 13.3 % (0.0-12.0); Neutrophils # (auto) 3.1 10 ^3/uL (1.6-8.6); Neutrophils % (auto) 78.4 % (37.0-80.0); Platelet Count (auto) 69 10^3/uL (140-450); Red Blood Cells 1.95 10^6/uL (4.0-5.20); Red Cell Distribution Width 19.1 % (11.8-14.3); White Blood Cell 3.9 10^3/uL (4.4-10.8)
[2020-04-07 16:12] LABS: BUN/Creatinine Ratio 25.8; Potassium 3.3 mmol/L (3.5-5.1)
[2020-04-07 16:13] LABS: Albumin 2.1 g/dL (3.4-5.0); Calcium 7.6 mg/dL (8.5-10.1)
[2020-04-07 16:18] LABS: Bilirubin, Total 1.2 mg/dL (0.2-1.0)
[2020-04-07 16:46] LABS: Hemoglobin 6.4 g/dL (12.2-16.2)
[2020-04-07] MEDS ORDERED: ENOXAPARIN SOD 60 MG/0.6 ML SYRINGE SC ONE (18:15)
[2020-04-07] MEDS ORDERED: POTASSIUM CHL 20MEQ/100ML 100 ML IV ONE (18:15)
[2020-04-07] MEDS ORDERED: NITROGLYCERIN 0.4 MG SL TAB SL PRN ×2 (18:45→21:00)
[2020-04-07] MEDS ORDERED: MORPHINE SULF INJ 2 MG/ML SYRINGE 1ML IV PRN ×2 (18:45→21:00)
[2020-04-07] MEDS ORDERED: POTASSIUM CHLORIDE 20 MEQ, LIDOCAINE 1% (LOCAL ANESTH.) 2 ML in SODIUM CHL 0.9% 100 ML IV ONE (18:45)
[2020-04-07] MEDS ORDERED: SODIUM FERR GLUC 62.5MG/5ML 125 MG in SODIUM CHL 0.9% 100 ML IV ONE (20:45)
[2020-04-07] MEDS ORDERED: CYANOCOBALAMIN (B-12) 1000 MCG/1 ML VIAL IM ONE (20:45)
[2020-04-07] MEDS ORDERED: FOLIC ACID 1 MG TAB PO ONE (20:45)
[2020-04-07] MEDS ORDERED: SODIUM CHLORIDE 0.9% 1,000 ML IV SCH (21:00)
[2020-04-07] MEDS ORDERED: ALUM & MAG HYDROX-SIMETH LIQ(MAALOX) 30 ML PO PRN (21:00)
[2020-04-07] MEDS ORDERED: HYDROcodone-ACET 5/325MG TAB PO PRN (21:00)
[2020-04-07] MEDS ORDERED: DOCUSATE SOD 100 MG CAP PO PRN (21:00)
[2020-04-07] MEDS ORDERED: PANTOPRAZOLE 40 MG/10 ML VIAL INJ IV ONE (21:00)
[2020-04-07 21:24] LABS: % Iron Saturation 39.4 % (15-50)
[2020-04-07] MEDS ORDERED: LISI-648 PO (21:33)
[2020-04-07] MEDS ORDERED: CETI10TA80 PO (21:33)
[2020-04-07] MEDS ORDERED: SPIR25TA8 PO (21:33)
[2020-04-07] MEDS ORDERED: LEVO75TA6 PO (21:33)
[2020-04-07] MEDS ORDERED: DONE5TAB31 PO (21:33)
[2020-04-07] MEDS ORDERED: TRAZ50TA2 PO (21:33)
[2020-04-07] MEDS ORDERED: ATOR20TA50 PO (21:33)
[2020-04-07] MEDS ORDERED: LEFL1TAB3 PO (21:33)
[2020-04-07 22:38] LABS: Cholesterol < 50 mg/dL (< 200)
[2020-04-07 22:41] LABS: HDL Cholesterol 11 mg/dL (40-59); LDL Cholesterol 9 mg/dL (< 100); Triglycerides 85 mg/dL (< 150)
[2020-04-07] MEDS: DONEPEZIL HYDROCHLORIDE 5 MG TAB PO SCH (22:47)
[2020-04-07] MEDS: CARVEDILOL 3.125 MG TAB PO SCH (22:48)
[2020-04-07] MEDS: busPIRone HCL 10 MG TAB PO SCH (22:48)
[2020-04-07] MEDS: ATORVASTATIN 20 MG TAB PO SCH (22:49)
[2020-04-07] MEDS: traZODone HCL 50 MG TAB PO SCH (22:49)
[2020-04-07] MEDS: TOLTERODINE TARTRATE 1 MG TAB PO SCH (22:49)
[2020-04-08] VITALS (7 sets, daily range): BP systolic 115–141; BP diastolic 57–73
[2020-04-08] MEDS: FUROSEMIDE 20 MG/2 ML VIAL IV SCH ×2 (06:15→19:29)
[2020-04-08] MEDS ORDERED: LEVOTHYROXINE SODIUM 25 MCG TAB PO SCH (07:00)
[2020-04-08 07:12] LABS: Basophils # (auto) 0 10 ^3/uL (0-0.2); Basophils % (auto) 0.1 % (0.0-2.0); Eosinophils # (auto) 0 10 ^3/uL (0-0.8); Lymphocytes # (auto) 0.3 10 ^3/uL (0.4-5.4); Monocytes # (auto) 0.6 10 ^3/uL (0-1.3); White Blood Cell 5.5 10^3/uL (4.4-10.8)
[2020-04-08 07:22] LABS: Hematocrit 24.9 % (36.0-46.0); Hemoglobin 7.8 g/dL (12.2-16.2); Lymphocytes % (auto) 5.1 % (10.0-50.0); Mean Corpuscular Hemoglobin 31.1 pg (28.0-32.0); Mean Corpuscular Hgb Conc. 31.5 g/dL (32.0-36.0); Mean Corpuscular Volume 98.8 fL (80.0-100.0); Monocytes % (auto) 11.2 % (0.0-12.0); Neutrophils # (auto) 4.6 10 ^3/uL (1.6-8.6); Neutrophils % (auto) 83.6 % (37.0-80.0); Nucleated Red Blood Cells % 0.2 %; Platelet Count (auto) 63 10^3/uL (140-450); Red Blood Cells 2.52 10^6/uL (4.0-5.20); Red Cell Distribution Width 19.5 % (11.8-14.3)
[2020-04-08 07:24] LABS: INR 2.02 (0.9-1.15); Partial Thromboplastin Time 62.7 sec (23.0-31.2)
[2020-04-08 07:34] LABS: Calcium 7.7 mg/dL (8.5-10.1); Potassium 3.6 mmol/L (3.5-5.1)
[2020-04-08 07:39] LABS: Albumin 1.9 g/dL (3.4-5.0); BUN/Creatinine Ratio 30.7; Bilirubin, Total 1.6 mg/dL (0.2-1.0); Magnesium 2.4 mg/dL (1.6-2.6); Phosphorus 1.5 mg/dL (2.5-4.90); Total Protein 4.2 g/dL (6.4-8.2)
[2020-04-08] MEDS: hydrOXYchloroQUINE SULFATE 200 MG TAB PO SCH (09:30)
[2020-04-08] MEDS: PANTOPRAZOLE 40 MG/10 ML VIAL INJ IV SCH (09:30)
[2020-04-08] MEDS: CYANOCOBALAMIN 500 MCG TAB PO SCH (09:31)
[2020-04-08] MEDS: FOLIC ACID 1 MG TAB PO SCH (09:31)
[2020-04-08] MEDS: predniSONE 5 MG TAB PO SCH (09:31)
[2020-04-08] MEDS: busPIRone HCL 10 MG TAB PO SCH ×2 (09:32→21:56)
[2020-04-08] MEDS: CITALOPRAM HYDROBR 20 MG TAB PO SCH (09:32)
[2020-04-08] MEDS: CARVEDILOL 3.125 MG TAB PO SCH ×2 (09:33→21:55)
[2020-04-08] MEDS: LISINOPRIL 5 MG TAB PO SCH (09:34)
[2020-04-08] MEDS ORDERED: POTASSIUM CHL 20 Meq TABLET PO SCH (10:00)
[2020-04-08] MEDS: CHOLECALCIFEROL (VITD3) 2,000 UNIT CAP PO SCH (10:00)
[2020-04-08] MEDS: TOLTERODINE TARTRATE 1 MG TAB PO SCH ×2 (10:00→21:55)
[2020-04-08 10:51] LABS: Folate (Folic Acid) > 24.00 ng/mL (5.38-24)
[2020-04-08] MEDS ORDERED: SODIUM BICARBONATE 50ML VIAL 50 ML in D5W 5% 1,000 ML IV ONE (11:30)
[2020-04-08] MEDS: SODIUM FERR GLUC 62.5MG/5ML 125 MG in SODIUM CHL 0.9% 100 ML IV SCH (13:35)
[2020-04-08] MEDS ORDERED: LEVOTHYROXINE SODIUM 25 MCG TAB PO ONE (15:30)
[2020-04-08] MEDS ORDERED: OMNIPAQUE ORAL SOLN 500ml 12mg/ml PO ONE (15:44)
[2020-04-08] MEDS: ONDANSETRON HCL 4 MG/2 ML VIAL IV PRN ×2 (16:24→21:56)
[2020-04-08] MEDS: MORPHINE SULF INJ 2 MG/ML SYRINGE 1ML IV PRN ×2 (16:24→21:56)
[2020-04-08] MEDS ORDERED: IOHEXOL 300 MG/ML 100ML BOTTLE IJ ONE (17:50)
[2020-04-08] MEDS: NEUTRA-PHOS TABLET PO SCH (19:28)
[2020-04-08] MEDS: ATORVASTATIN 20 MG TAB PO SCH (21:55)
[2020-04-08] MEDS: traZODone HCL 50 MG TAB PO SCH (21:56)
[2020-04-08] MEDS: DONEPEZIL HYDROCHLORIDE 5 MG TAB PO SCH (21:56)
[2020-04-09] MEDS: ONDANSETRON HCL 4 MG/2 ML VIAL IV PRN ×3 (02:28→11:23)
[2020-04-09] MEDS: MORPHINE SULF INJ 2 MG/ML SYRINGE 1ML IV PRN ×3 (02:28→11:22)
[2020-04-09 05:00] VITALS: BP 95/53
[2020-04-09] MEDS: LEVOTHYROXINE SODIUM 25 MCG TAB PO SCH (06:35)
[2020-04-09] MEDS: FUROSEMIDE 20 MG/2 ML VIAL IV SCH (06:35)
[2020-04-09] MEDS: NEUTRA-PHOS TABLET PO SCH ×3 (08:13→18:14)
[2020-04-09 09:20] VITALS: BP 108/60
[2020-04-09] MEDS: CITALOPRAM HYDROBR 20 MG TAB PO SCH (09:40)
[2020-04-09] MEDS: FOLIC ACID 1 MG TAB PO SCH (09:40)
[2020-04-09] MEDS: predniSONE 5 MG TAB PO SCH (09:40)
[2020-04-09] MEDS: busPIRone HCL 10 MG TAB PO SCH ×2 (09:40→22:00)
[2020-04-09] MEDS: TOLTERODINE TARTRATE 1 MG TAB PO SCH ×2 (09:41→22:04)
[2020-04-09] MEDS: LISINOPRIL 5 MG TAB PO SCH (09:41)
[2020-04-09] MEDS: CYANOCOBALAMIN 500 MCG TAB PO SCH (09:41)
[2020-04-09] MEDS: CARVEDILOL 3.125 MG TAB PO SCH ×2 (09:41→22:00)
[2020-04-09] MEDS: hydrOXYchloroQUINE SULFATE 200 MG TAB PO SCH (09:41)
[2020-04-09] MEDS: PANTOPRAZOLE 40 MG/10 ML VIAL INJ IV SCH (09:42)
[2020-04-09] MEDS: CHOLECALCIFEROL (VITD3) 2,000 UNIT CAP PO SCH (09:42)
[2020-04-09 09:44] LABS: Hemoglobin 7.4 g/dL (12.2-16.2); White Blood Cell 4.3 10^3/uL (4.4-10.8)
[2020-04-09 09:46] LABS: Hematocrit 23.5 % (36.0-46.0); Mean Corpuscular Hemoglobin 31.2 pg (28.0-32.0); Mean Corpuscular Hgb Conc. 31.5 g/dL (32.0-36.0); Mean Corpuscular Volume 99.2 fL (80.0-100.0); Platelet Count (auto) 60 10^3/uL (140-450); Red Blood Cells 2.37 10^6/uL (4.0-5.20)
[2020-04-09 09:50] LABS: BUN/Creatinine Ratio 21.9; Calcium 7.4 mg/dL (8.5-10.1); Potassium 3.3 mmol/L (3.5-5.1)
[2020-04-09 09:51] LABS: Red Cell Distribution Width 20.3 % (11.8-14.3)
[2020-04-09] MEDS ORDERED: POTASSIUM EFFERVESENT TAB 25 MEQ PO ONE (10:45)
[2020-04-09 12:18] LABS: Basophils % (manual) 0 (0.0-2.0); Blast Cells 0; Eosinophils % (manual) 0 (0-7); Metamyelocytes % 0; Myelocytes % 0; Promyelocytes % 0; Reactive Lymphocytes 0
[2020-04-09 12:31] LABS: Band Neutrophils % (manual) 1; Lymphocytes % (manual) 7 (10.0-50.0); Monocytes % (manual) 14 (0-12)
[2020-04-09] MEDS ORDERED: SODIUM CHLORIDE LOCK 10 ML ONE (12:41)
[2020-04-09] MEDS ORDERED: LIDOCAINE VISCOUS 2% 15ML UD ONE (12:41)
[2020-04-09] MEDS ORDERED: MIDAZOLAM HCL 5 MG/ML-1ML VIAL ONE (12:41)
[2020-04-09] MEDS ORDERED: diphenhdrAMINE HCL 50 MG/1 ML VL ONE (12:41)
[2020-04-09] MEDS ORDERED: fentaNYL CITRATE 100 MCG/2 ML VL ONE (12:42)
[2020-04-09 13:00] VITALS: BP 104/66
[2020-04-09] MEDS: SODIUM FERR GLUC 62.5MG/5ML 125 MG in SODIUM CHL 0.9% 100 ML IV SCH (13:07)
[2020-04-09 13:25] LABS: INR 2.06 (0.9-1.15); Partial Thromboplastin Time 55.4 sec (23.0-31.2)
[2020-04-09 17:00] VITALS: BP 107/64
[2020-04-09] MEDS ORDERED: POTASSIUM CHL 20 Meq TABLET PO ONE (20:00)
[2020-04-09] MEDS ORDERED: SODIUM BICARBONATE 50ML VIAL 75 ML in D5W 5% 1,000 ML IV ONE (20:00)
[2020-04-09] MEDS: DONEPEZIL HYDROCHLORIDE 5 MG TAB PO SCH (21:59)
[2020-04-09 22:00] VITALS: BP 104/62
[2020-04-09] MEDS: traZODone HCL 50 MG TAB PO SCH (22:00)
[2020-04-09] MEDS: ATORVASTATIN 20 MG TAB PO SCH (22:01)
[2020-04-09 23:01] LABS: Calcium 6.7 mg/dL (8.5-10.1); Potassium 3.8 mmol/L (3.5-5.1)
[2020-04-09 23:03] LABS: BUN/Creatinine Ratio 20.1
[2020-04-10] VITALS (12 sets, daily range): BP systolic 91–123; BP diastolic 53–79
[2020-04-10] MEDS: MORPHINE SULF INJ 2 MG/ML SYRINGE 1ML IV PRN ×4 (01:57→23:54)
[2020-04-10] MEDS: LORazepam 0.5 MG TAB PO PRN (02:30)
[2020-04-10] MEDS: LEVOTHYROXINE SODIUM 25 MCG TAB PO SCH (06:29)
[2020-04-10 06:40] LABS: Basophils # (auto) 0 10 ^3/uL (0-0.2); Basophils % (auto) 0.1 % (0.0-2.0); Eosinophils # (auto) 0 10 ^3/uL (0-0.8); Hemoglobin 7.8 g/dL (12.2-16.2); Lymphocytes # (auto) 0.3 10 ^3/uL (0.4-5.4); Mean Corpuscular Volume 96.1 fL (80.0-100.0); Monocytes # (auto) 0.7 10 ^3/uL (0-1.3); Neutrophils # (auto) 4.8 10 ^3/uL (1.6-8.6); Nucleated Red Blood Cells % 0.1 %
[2020-04-10 06:44] LABS: Lymphocytes % (auto) 4.9 % (10.0-50.0); Mean Corpuscular Hemoglobin 31.1 pg (28.0-32.0); Mean Corpuscular Hgb Conc. 32.4 g/dL (32.0-36.0); Monocytes % (auto) 12.3 % (0.0-12.0); Neutrophils % (auto) 82.7 % (37.0-80.0); Platelet Count (auto) 72 10^3/uL (140-450); Red Blood Cells 2.49 10^6/uL (4.0-5.20); Red Cell Distribution Width 19.6 % (11.8-14.3); White Blood Cell 5.8 10^3/uL (4.4-10.8)
[2020-04-10 06:53] LABS: Potassium 4.3 mmol/L (3.5-5.1)
[2020-04-10 07:01] LABS: BUN/Creatinine Ratio 21.3; Calcium 7.1 mg/dL (8.5-10.1)
[2020-04-10] MEDS: CHOLECALCIFEROL (VITD3) 1,000UNIT=25mCg TAB PO SCH (08:50)
[2020-04-10] MEDS: TOLTERODINE TARTRATE 1 MG TAB PO SCH ×2 (08:50→22:11)
[2020-04-10] MEDS: PANTOPRAZOLE 40 MG/10 ML VIAL INJ IV SCH (08:50)
[2020-04-10] MEDS: NEUTRA-PHOS TABLET PO SCH ×3 (08:50→17:24)
[2020-04-10] MEDS: busPIRone HCL 10 MG TAB PO SCH ×2 (08:51→22:11)
[2020-04-10] MEDS: CARVEDILOL 3.125 MG TAB PO SCH ×2 (08:51→22:00)
[2020-04-10] MEDS: predniSONE 5 MG TAB PO SCH (08:51)
[2020-04-10] MEDS: CITALOPRAM HYDROBR 20 MG TAB PO SCH (08:52)
[2020-04-10] MEDS: hydrOXYchloroQUINE SULFATE 200 MG TAB PO SCH (08:52)
[2020-04-10] MEDS: CYANOCOBALAMIN 500 MCG TAB PO SCH (08:52)
[2020-04-10] MEDS: FOLIC ACID 1 MG TAB PO SCH (08:52)
[2020-04-10] MEDS: LISINOPRIL 5 MG TAB PO SCH (08:53)
[2020-04-10] MEDS ORDERED: phytonadione 5 MG in SODIUM CHL 0.9% 50 ML IV ONE (09:00)
[2020-04-10 09:11] LABS: Hepatitis B Surface Antibody Positive
[2020-04-10 09:45] LABS: Hepatitis A Total Antibody Positive
[2020-04-10 10:17] LABS: Hepatitis B Core Total AB Negative; Hepatitis B Surface Antigen Negative (Negative); Hepatitis C Antibody Negative (Negative)
[2020-04-10] MEDS ORDERED: fentaNYL CITRATE 100 MCG/2 ML VL ONE (11:46)
[2020-04-10] MEDS ORDERED: MIDAZOLAM HCL 1MG/1ML-2 ML VIAL ONE (11:46)
[2020-04-10] MEDS ORDERED: LIDOCAINE 2%HCL (LOCAL ANESTH.) INJ 20ML MDV ONE (11:47)
[2020-04-10] MEDS ORDERED: FLUMAZENIL 0.1 MG/ML INJ 10ML MDV IV ONE (11:51)
[2020-04-10] MEDS: SODIUM FERR GLUC 62.5MG/5ML 125 MG in SODIUM CHL 0.9% 100 ML IV SCH (14:22)
[2020-04-10 18:32] LABS: INR 1.67 (0.9-1.15); Partial Thromboplastin Time 50.2 sec (23.0-31.2)
[2020-04-10] MEDS ORDERED: VANCOMYCIN PER PHARMACY 0 MG IV SCH (19:00)
[2020-04-10] MEDS ORDERED: VANCOMYCIN 1GM/250ML 250 ML IV ONE (20:00)
[2020-04-10] MEDS: traZODone HCL 50 MG TAB PO SCH (22:11)
[2020-04-10] MEDS: ATORVASTATIN 20 MG TAB PO SCH (22:12)
[2020-04-10] MEDS: PIPERACILLIN-TAZO 4.5GM 100 ML IV SCH (22:12)
[2020-04-10] MEDS: DONEPEZIL HYDROCHLORIDE 5 MG TAB PO SCH (22:12)
[2020-04-11] VITALS (12 sets, daily range): BP systolic 91–110; BP diastolic 49–75
[2020-04-11] MEDS: PIPERACILLIN-TAZO 4.5GM 100 ML IV SCH ×2 (05:54→14:16)
[2020-04-11 06:20] LABS: Basophils # (auto) 0 10 ^3/uL (0-0.2); Basophils % (auto) 0.1 % (0.0-2.0); Eosinophils # (auto) 0 10 ^3/uL (0-0.8); Lymphocytes # (auto) 0.3 10 ^3/uL (0.4-5.4); Monocytes # (auto) 0.6 10 ^3/uL (0-1.3); Neutrophils # (auto) 4.9 10 ^3/uL (1.6-8.6); Nucleated Red Blood Cells % 0.1 %
[2020-04-11 06:23] LABS: Hematocrit 20.3 % (36.0-46.0); Lymphocytes % (auto) 4.7 % (10.0-50.0); Mean Corpuscular Hemoglobin 31.7 pg (28.0-32.0); Mean Corpuscular Hgb Conc. 32.5 g/dL (32.0-36.0); Mean Corpuscular Volume 97.4 fL (80.0-100.0); Monocytes % (auto) 10.3 % (0.0-12.0); Neutrophils % (auto) 84.9 % (37.0-80.0); Platelet Count (auto) 57 10^3/uL (140-450); Red Blood Cells 2.08 10^6/uL (4.0-5.20); Red Cell Distribution Width 19.1 % (11.8-14.3); White Blood Cell 5.8 10^3/uL (4.4-10.8)
[2020-04-11] MEDS: LEVOTHYROXINE SODIUM 25 MCG TAB PO SCH (06:45)
[2020-04-11 06:47] LABS: Potassium 4.3 mmol/L (3.5-5.1)
[2020-04-11 06:52] LABS: BUN/Creatinine Ratio 18.9; Calcium 6.5 mg/dL (8.5-10.1)
[2020-04-11 07:21] LABS: Hemoglobin 6.6 g/dL (12.2-16.2)
[2020-04-11] MEDS: FOLIC ACID 1 MG TAB PO SCH (08:57)
[2020-04-11] MEDS: hydrOXYchloroQUINE SULFATE 200 MG TAB PO SCH (08:57)
[2020-04-11] MEDS: MORPHINE SULF INJ 2 MG/ML SYRINGE 1ML IV PRN ×2 (08:57→20:02)
[2020-04-11] MEDS: NEUTRA-PHOS TABLET PO SCH ×3 (08:58→18:35)
[2020-04-11] MEDS: CHOLECALCIFEROL (VITD3) 1,000UNIT=25mCg TAB PO SCH (08:58)
[2020-04-11] MEDS: CITALOPRAM HYDROBR 20 MG TAB PO SCH (08:58)
[2020-04-11] MEDS: busPIRone HCL 10 MG TAB PO SCH ×2 (08:58→22:04)
[2020-04-11] MEDS: CYANOCOBALAMIN 500 MCG TAB PO SCH (08:59)
[2020-04-11] MEDS: predniSONE 5 MG TAB PO SCH (08:59)
[2020-04-11] MEDS: CARVEDILOL 3.125 MG TAB PO SCH ×2 (09:07→22:04)
[2020-04-11] MEDS: TOLTERODINE TARTRATE 1 MG TAB PO SCH ×2 (09:07→22:10)
[2020-04-11] MEDS: PANTOPRAZOLE 40 MG/10 ML VIAL INJ IV SCH (09:07)
[2020-04-11] MEDS: LISINOPRIL 5 MG TAB PO SCH (09:07)
[2020-04-11 14:04] LABS: Hematocrit 25.4 % (36.0-46.0); Hemoglobin 8.5 g/dL (12.2-16.2)
[2020-04-11] MEDS: PIPERACILLIN-TAZOB 2.25GM 50 ML IV SCH (22:03)
[2020-04-11] MEDS: DONEPEZIL HYDROCHLORIDE 5 MG TAB PO SCH (22:04)
[2020-04-11] MEDS: ATORVASTATIN 20 MG TAB PO SCH (22:04)
[2020-04-11] MEDS: traZODone HCL 50 MG TAB PO SCH (22:04)
[2020-04-12] VITALS (7 sets, daily range): BP systolic 107–125; BP diastolic 59–78
[2020-04-12 05:46] LABS: Basophils # (auto) 0 10 ^3/uL (0-0.2); Eosinophils # (auto) 0 10 ^3/uL (0-0.8); Lymphocytes # (auto) 0.4 10 ^3/uL (0.4-5.4); Lymphocytes % (auto) 6.8 % (10.0-50.0); Monocytes # (auto) 0.6 10 ^3/uL (0-1.3); Neutrophils # (auto) 4.7 10 ^3/uL (1.6-8.6); Nucleated Red Blood Cells % 0.1 %; Platelet Count (auto) 58 10^3/uL (140-450)
[2020-04-12 05:48] LABS: Basophils % (auto) 0.3 % (0.0-2.0); Eosinophils % (auto) 0.1 % (0.0-7.0); Hematocrit 26.5 % (36.0-46.0); Mean Corpuscular Hemoglobin 32.5 pg (28.0-32.0); Mean Corpuscular Hgb Conc. 33.8 g/dL (32.0-36.0); Monocytes % (auto) 10.1 % (0.0-12.0); Neutrophils % (auto) 82.7 % (37.0-80.0); Red Blood Cells 2.76 10^6/uL (4.0-5.20); Red Cell Distribution Width 18.4 % (11.8-14.3); White Blood Cell 5.7 10^3/uL (4.4-10.8)
[2020-04-12 06:05] LABS: Calcium 6.4 mg/dL (8.5-10.1); Potassium 4.2 mmol/L (3.5-5.1)
[2020-04-12 06:07] LABS: BUN/Creatinine Ratio 20.6
[2020-04-12] MEDS: PIPERACILLIN-TAZOB 2.25GM 50 ML IV SCH ×3 (06:14→22:01)
[2020-04-12] MEDS: LEVOTHYROXINE SODIUM 25 MCG TAB PO SCH (06:15)
[2020-04-12] MEDS: CYANOCOBALAMIN 500 MCG TAB PO SCH (10:00)
[2020-04-12] MEDS: FOLIC ACID 1 MG TAB PO SCH (10:27)
[2020-04-12] MEDS: predniSONE 5 MG TAB PO SCH (10:27)
[2020-04-12] MEDS: PANTOPRAZOLE 40 MG/10 ML VIAL INJ IV SCH (10:27)
[2020-04-12] MEDS: CARVEDILOL 3.125 MG TAB PO SCH ×2 (10:28→22:03)
[2020-04-12] MEDS: busPIRone HCL 10 MG TAB PO SCH ×2 (10:28→22:02)
[2020-04-12] MEDS: CHOLECALCIFEROL (VITD3) 1,000UNIT=25mCg TAB PO SCH (10:29)
[2020-04-12] MEDS: TOLTERODINE TARTRATE 1 MG TAB PO SCH ×2 (10:29→22:03)
[2020-04-12] MEDS: CITALOPRAM HYDROBR 20 MG TAB PO SCH (10:29)
[2020-04-12] MEDS: hydrOXYchloroQUINE SULFATE 200 MG TAB PO SCH (10:29)
[2020-04-12] MEDS ORDERED: LACTULOSE 20Gm/30ML SOLN PO PRN (14:00)
[2020-04-12] MEDS: MORPHINE SULF INJ 2 MG/ML SYRINGE 1ML IV PRN ×2 (14:53→23:06)
[2020-04-12] MEDS: DONEPEZIL HYDROCHLORIDE 5 MG TAB PO SCH (22:02)
[2020-04-12] MEDS: ATORVASTATIN 20 MG TAB PO SCH (22:03)
[2020-04-12] MEDS: traZODone HCL 50 MG TAB PO SCH (22:03)
[2020-04-13] VITALS (7 sets, daily range): BP systolic 104–126; BP diastolic 61–75
[2020-04-13] MEDS: MORPHINE SULF INJ 2 MG/ML SYRINGE 1ML IV PRN ×3 (03:21→21:01)
[2020-04-13 05:29] LABS: Basophils # (auto) 0 10 ^3/uL (0-0.2); Basophils % (auto) 0.1 % (0.0-2.0); Eosinophils # (auto) 0 10 ^3/uL (0-0.8); Hematocrit 26.9 % (36.0-46.0); Hemoglobin 9.1 g/dL (12.2-16.2); Lymphocytes # (auto) 0.5 10 ^3/uL (0.4-5.4); Lymphocytes % (auto) 7.1 % (10.0-50.0); Mean Corpuscular Hemoglobin 32.1 pg (28.0-32.0); Mean Corpuscular Hgb Conc. 33.8 g/dL (32.0-36.0); Mean Corpuscular Volume 94.9 fL (80.0-100.0); Monocytes # (auto) 0.6 10 ^3/uL (0-1.3); Monocytes % (auto) 8.9 % (0.0-12.0); Neutrophils # (auto) 5.4 10 ^3/uL (1.6-8.6); Neutrophils % (auto) 83.9 % (37.0-80.0); Nucleated Red Blood Cells % 0.1 %; Platelet Count (auto) 61 10^3/uL (140-450); Red Blood Cells 2.83 10^6/uL (4.0-5.20); White Blood Cell 6.4 10^3/uL (4.4-10.8)
[2020-04-13 05:55] LABS: BUN/Creatinine Ratio 21.4; Calcium 6.6 mg/dL (8.5-10.1)
[2020-04-13] MEDS: LEVOTHYROXINE SODIUM 25 MCG TAB PO SCH (06:08)
[2020-04-13] MEDS: PIPERACILLIN-TAZOB 2.25GM 50 ML IV SCH ×3 (06:08→21:00)
[2020-04-13] MEDS: PANTOPRAZOLE 40 MG/10 ML VIAL INJ IV SCH (09:50)
[2020-04-13] MEDS: CHOLECALCIFEROL (VITD3) 1,000UNIT=25mCg TAB PO SCH (09:50)
[2020-04-13] MEDS: CARVEDILOL 3.125 MG TAB PO SCH ×2 (09:51→21:13)
[2020-04-13] MEDS: hydrOXYchloroQUINE SULFATE 200 MG TAB PO SCH (09:51)
[2020-04-13] MEDS: FOLIC ACID 1 MG TAB PO SCH (09:51)
[2020-04-13] MEDS: CITALOPRAM HYDROBR 20 MG TAB PO SCH (09:51)
[2020-04-13] MEDS: predniSONE 5 MG TAB PO SCH (09:52)
[2020-04-13] MEDS: busPIRone HCL 10 MG TAB PO SCH ×2 (09:52→21:00)
[2020-04-13] MEDS: TOLTERODINE TARTRATE 1 MG TAB PO SCH ×2 (09:52→21:00)
[2020-04-13] MEDS: CYANOCOBALAMIN 500 MCG TAB PO SCH (10:00)
[2020-04-13] MEDS ORDERED: guaiFENesin-DM 100/10mg/5ml SYR PO PRN (15:45)
[2020-04-13] MEDS: Ensure HIGH Protein Chocolate 8oz Bottle PO SCH (18:50)
[2020-04-13] MEDS: ATORVASTATIN 20 MG TAB PO SCH (21:00)
[2020-04-13] MEDS: traZODone HCL 50 MG TAB PO SCH (21:00)
[2020-04-13] MEDS: DONEPEZIL HYDROCHLORIDE 5 MG TAB PO SCH (21:00)
[2020-04-14] MEDS: MORPHINE SULF INJ 2 MG/ML SYRINGE 1ML IV PRN ×4 (01:29→20:27)
[2020-04-14 05:00] VITALS: BP 121/72
[2020-04-14] MEDS: PIPERACILLIN-TAZOB 2.25GM 50 ML IV SCH (05:53)
[2020-04-14] MEDS: LEVOTHYROXINE SODIUM 25 MCG TAB PO SCH (06:07)
[2020-04-14 06:52] LABS: Calcium 7.1 mg/dL (8.5-10.1); Potassium 3.5 mmol/L (3.5-5.1)
[2020-04-14 06:54] LABS: BUN/Creatinine Ratio 23.2
[2020-04-14 06:55] LABS: Basophils # (auto) 0 10 ^3/uL (0-0.2); Basophils % (auto) 0.1 % (0.0-2.0); Eosinophils # (auto) 0 10 ^3/uL (0-0.8); Hematocrit 24.5 % (36.0-46.0); Hemoglobin 8.1 g/dL (12.2-16.2); Lymphocytes # (auto) 0.4 10 ^3/uL (0.4-5.4); Lymphocytes % (auto) 6.7 % (10.0-50.0); Mean Corpuscular Hgb Conc. 33.1 g/dL (32.0-36.0); Mean Corpuscular Volume 96.7 fL (80.0-100.0); Monocytes # (auto) 0.5 10 ^3/uL (0-1.3); Monocytes % (auto) 9.6 % (0.0-12.0); Neutrophils # (auto) 4.7 10 ^3/uL (1.6-8.6); Neutrophils % (auto) 83.6 % (37.0-80.0); Nucleated Red Blood Cells % 0.1 %; Platelet Count (auto) 60 10^3/uL (140-450); Red Blood Cells 2.53 10^6/uL (4.0-5.20); Red Cell Distribution Width 18.5 % (11.8-14.3); White Blood Cell 5.6 10^3/uL (4.4-10.8)
[2020-04-14] MEDS: Ensure HIGH Protein Chocolate 8oz Bottle PO SCH ×3 (08:00→18:24)
[2020-04-14 09:00] VITALS: BP 111/67
[2020-04-14] MEDS: CYANOCOBALAMIN 500 MCG TAB PO SCH (09:21)
[2020-04-14] MEDS: CITALOPRAM HYDROBR 20 MG TAB PO SCH (09:21)
[2020-04-14] MEDS: CHOLECALCIFEROL (VITD3) 1,000UNIT=25mCg TAB PO SCH (09:21)
[2020-04-14] MEDS: busPIRone HCL 10 MG TAB PO SCH ×2 (09:21→22:05)
[2020-04-14] MEDS: FOLIC ACID 1 MG TAB PO SCH (09:21)
[2020-04-14] MEDS: hydrOXYchloroQUINE SULFATE 200 MG TAB PO SCH (09:21)
[2020-04-14] MEDS: PANTOPRAZOLE 40 MG/10 ML VIAL INJ IV SCH (09:22)
[2020-04-14] MEDS: predniSONE 5 MG TAB PO SCH (09:22)
[2020-04-14] MEDS: TOLTERODINE TARTRATE 1 MG TAB PO SCH ×2 (09:22→22:32)
[2020-04-14] MEDS: CARVEDILOL 3.125 MG TAB PO SCH ×2 (09:25→22:05)
[2020-04-14 12:53] VITALS: BP 124/73
[2020-04-14] MEDS ORDERED: D5W/SOD CHLO 0.9% 1,000 ML IV ONE (14:30)
[2020-04-14] MEDS: MEROPENEM 500MG IVPB 50 ML IV SCH ×2 (14:45→22:26)
[2020-04-14 16:56] VITALS: BP 135/72
[2020-04-14 21:00] VITALS: BP 121/71
[2020-04-14] MEDS: ATORVASTATIN 20 MG TAB PO SCH (22:05)
[2020-04-14] MEDS: DONEPEZIL HYDROCHLORIDE 5 MG TAB PO SCH (22:05)
[2020-04-14] MEDS: traZODone HCL 50 MG TAB PO SCH (22:05)
[2020-04-15 05:00] VITALS: BP 135/76
[2020-04-15] MEDS: LEVOTHYROXINE SODIUM 25 MCG TAB PO SCH (06:39)
[2020-04-15 09:13] VITALS: BP 123/70
[2020-04-15] MEDS: CYANOCOBALAMIN 500 MCG TAB PO SCH (10:00)
[2020-04-15] MEDS: TOLTERODINE TARTRATE 1 MG TAB PO SCH ×2 (10:00→21:50)
[2020-04-15] MEDS: MEROPENEM 500MG IVPB 50 ML IV SCH ×2 (10:48→22:00)
[2020-04-15] MEDS: PANTOPRAZOLE 40 MG/10 ML VIAL INJ IV SCH (10:48)
[2020-04-15] MEDS: FOLIC ACID 1 MG TAB PO SCH (10:49)
[2020-04-15] MEDS: CITALOPRAM HYDROBR 20 MG TAB PO SCH (10:50)
[2020-04-15] MEDS: predniSONE 5 MG TAB PO SCH (10:52)
[2020-04-15] MEDS: busPIRone HCL 10 MG TAB PO SCH ×2 (10:53→21:48)
[2020-04-15] MEDS: hydrOXYchloroQUINE SULFATE 200 MG TAB PO SCH (10:53)
[2020-04-15] MEDS: CHOLECALCIFEROL (VITD3) 1,000UNIT=25mCg TAB PO SCH (10:54)
[2020-04-15] MEDS: CARVEDILOL 3.125 MG TAB PO SCH ×2 (10:56→21:49)
[2020-04-15] MEDS: MORPHINE SULF INJ 2 MG/ML SYRINGE 1ML IV PRN (10:58)
[2020-04-15] MEDS: Ensure HIGH Protein Chocolate 8oz Bottle PO SCH (11:08)
[2020-04-15 12:53] VITALS: BP 132/74
[2020-04-15 16:33] VITALS: BP 111/66
[2020-04-15] MEDS: ACETAMINOPHEN 325 MG TAB PO PRN (18:27)
[2020-04-15] MEDS: DONEPEZIL HYDROCHLORIDE 5 MG TAB PO SCH (21:48)
[2020-04-15] MEDS: traZODone HCL 50 MG TAB PO SCH (21:49)
[2020-04-15] MEDS: ATORVASTATIN 20 MG TAB PO SCH (21:50)
[2020-04-15 22:00] VITALS: BP 123/63
[2020-04-16] MEDS: ACETAMINOPHEN 325 MG TAB PO PRN ×2 (00:48→09:05)
[2020-04-16 05:00] VITALS: BP 133/71
[2020-04-16] MEDS: LEVOTHYROXINE SODIUM 25 MCG TAB PO SCH (06:31)
[2020-04-16 08:42] VITALS: BP 129/74
[2020-04-16] MEDS: Ensure HIGH Protein Chocolate 8oz Bottle PO SCH ×4 (09:05→17:47)
[2020-04-16 10:06] LABS: Basophils # (auto) 0 10 ^3/uL (0-0.2); Basophils % (auto) 0.1 % (0.0-2.0); Eosinophils # (auto) 0 10 ^3/uL (0-0.8); Hematocrit 25.7 % (36.0-46.0); Hemoglobin 8.3 g/dL (12.2-16.2); Lymphocytes # (auto) 0.4 10 ^3/uL (0.4-5.4); Lymphocytes % (auto) 7.2 % (10.0-50.0); Mean Corpuscular Hemoglobin 31.3 pg (28.0-32.0); Mean Corpuscular Hgb Conc. 32.2 g/dL (32.0-36.0); Mean Corpuscular Volume 97.1 fL (80.0-100.0); Monocytes # (auto) 0.5 10 ^3/uL (0-1.3); Monocytes % (auto) 8.9 % (0.0-12.0); Neutrophils % (auto) 83.8 % (37.0-80.0); Platelet Count (auto) 76 10^3/uL (140-450); Red Blood Cells 2.64 10^6/uL (4.0-5.20); Red Cell Distribution Width 18.6 % (11.8-14.3)
[2020-04-16] MEDS: CARVEDILOL 3.125 MG TAB PO SCH ×2 (10:10→22:07)
[2020-04-16] MEDS: FOLIC ACID 1 MG TAB PO SCH (10:10)
[2020-04-16] MEDS: TOLTERODINE TARTRATE 1 MG TAB PO SCH ×2 (10:10→22:06)
[2020-04-16] MEDS: predniSONE 5 MG TAB PO SCH (10:10)
[2020-04-16] MEDS: busPIRone HCL 10 MG TAB PO SCH ×2 (10:10→22:06)
[2020-04-16] MEDS: CITALOPRAM HYDROBR 20 MG TAB PO SCH (10:10)
[2020-04-16] MEDS: hydrOXYchloroQUINE SULFATE 200 MG TAB PO SCH (10:11)
[2020-04-16] MEDS: CHOLECALCIFEROL (VITD3) 1,000UNIT=25mCg TAB PO SCH (10:11)
[2020-04-16] MEDS: CYANOCOBALAMIN 500 MCG TAB PO SCH (10:11)
[2020-04-16 13:00] VITALS: BP 126/70
[2020-04-16] MEDS: PANTOPRAZOLE 40 MG/10 ML VIAL INJ IV SCH (15:46)
[2020-04-16] MEDS: MEROPENEM 500MG IVPB 50 ML IV SCH (15:46)
[2020-04-16] MEDS: MORPHINE SULF INJ 2 MG/ML SYRINGE 1ML IV PRN (15:52)
[2020-04-16] MEDS: ONDANSETRON HCL 4 MG/2 ML VIAL IV PRN (15:53)
[2020-04-16 16:45] VITALS: BP 128/71
[2020-04-16 22:00] VITALS: BP 129/73
[2020-04-16] MEDS: traZODone HCL 50 MG TAB PO SCH (22:06)
[2020-04-16] MEDS: DONEPEZIL HYDROCHLORIDE 5 MG TAB PO SCH (22:06)
[2020-04-16] MEDS: ATORVASTATIN 20 MG TAB PO SCH (22:06)
[2020-04-17] VITALS (7 sets, daily range): BP systolic 124–143; BP diastolic 64–76
[2020-04-17] MEDS: MEROPENEM 500MG IVPB 50 ML IV SCH ×2 (03:22→16:37)
[2020-04-17] MEDS: LEVOTHYROXINE SODIUM 25 MCG TAB PO SCH (06:04)
[2020-04-17] MEDS: Ensure HIGH Protein Chocolate 8oz Bottle PO SCH ×3 (08:09→18:22)
[2020-04-17] MEDS: hydrOXYchloroQUINE SULFATE 200 MG TAB PO SCH (10:38)
[2020-04-17] MEDS: CITALOPRAM HYDROBR 20 MG TAB PO SCH (10:39)
[2020-04-17] MEDS: busPIRone HCL 10 MG TAB PO SCH ×2 (10:39→22:10)
[2020-04-17] MEDS: FOLIC ACID 1 MG TAB PO SCH (10:40)
[2020-04-17] MEDS: predniSONE 5 MG TAB PO SCH (10:40)
[2020-04-17] MEDS: CHOLECALCIFEROL (VITD3) 1,000UNIT=25mCg TAB PO SCH (10:41)
[2020-04-17] MEDS: CARVEDILOL 3.125 MG TAB PO SCH ×2 (10:41→22:11)
[2020-04-17] MEDS: PANTOPRAZOLE 40 MG/10 ML VIAL INJ IV SCH (10:42)
[2020-04-17] MEDS ORDERED: SODIUM CHLORIDE 0.9% 1,000 ML IV ONE ×2 (11:30)
[2020-04-17] MEDS: CYANOCOBALAMIN 500 MCG TAB PO SCH (11:49)
[2020-04-17] MEDS: TOLTERODINE TARTRATE 1 MG TAB PO SCH ×2 (11:49→22:11)
[2020-04-17] MEDS: ACETAMINOPHEN 325 MG TAB PO PRN ×2 (14:32→22:17)
[2020-04-17] MEDS: DONEPEZIL HYDROCHLORIDE 5 MG TAB PO SCH (22:10)
[2020-04-17] MEDS: traZODone HCL 50 MG TAB PO SCH (22:11)
[2020-04-17] MEDS: ATORVASTATIN 20 MG TAB PO SCH (22:12)
[2020-04-18] MEDS: MEROPENEM 500MG IVPB 50 ML IV SCH (04:06)
[2020-04-18 05:14] VITALS: BP 140/74
[2020-04-18] MEDS: LEVOTHYROXINE SODIUM 25 MCG TAB PO SCH (06:45)
[2020-04-18 07:00] LABS: Basophils # (auto) 0 10 ^3/uL (0-0.2); Eosinophils # (auto) 0 10 ^3/uL (0-0.8); Hematocrit 21.7 % (36.0-46.0); Hemoglobin 7.2 g/dL (12.2-16.2); Lymphocytes # (auto) 0.4 10 ^3/uL (0.4-5.4); Monocytes # (auto) 0.5 10 ^3/uL (0-1.3); Red Blood Cells 2.26 10^6/uL (4.0-5.20); White Blood Cell 5.1 10^3/uL (4.4-10.8)
[2020-04-18 07:05] LABS: Basophils % (auto) 0.2 % (0.0-2.0); Mean Corpuscular Hemoglobin 31.7 pg (28.0-32.0); Mean Corpuscular Hgb Conc. 33.1 g/dL (32.0-36.0); Monocytes % (auto) 9.3 % (0.0-12.0); Neutrophils # (auto) 4.3 10 ^3/uL (1.6-8.6); Neutrophils % (auto) 83.5 % (37.0-80.0); Platelet Count (auto) 71 10^3/uL (140-450); Red Cell Distribution Width 17.5 % (11.8-14.3)
[2020-04-18 07:22] LABS: Albumin 1.5 g/dL (3.4-5.0); Potassium 3.2 mmol/L (3.5-5.1)
[2020-04-18 07:26] LABS: BUN/Creatinine Ratio 30.6; Bilirubin, Total 1.5 mg/dL (0.2-1.0); Total Protein 3.9 g/dL (6.4-8.2)
[2020-04-18] MEDS: Ensure HIGH Protein Chocolate 8oz Bottle PO SCH ×3 (08:00→18:06)
[2020-04-18 08:15] VITALS: BP 141/70
[2020-04-18 09:00] VITALS: BP 141/70
[2020-04-18] MEDS: CITALOPRAM HYDROBR 20 MG TAB PO SCH (10:00)
[2020-04-18] MEDS: busPIRone HCL 10 MG TAB PO SCH ×2 (10:00→22:24)
[2020-04-18] MEDS: TOLTERODINE TARTRATE 1 MG TAB PO SCH ×2 (10:00→22:25)
[2020-04-18] MEDS: CHOLECALCIFEROL (VITD3) 1,000UNIT=25mCg TAB PO SCH (10:00)
[2020-04-18] MEDS: FOLIC ACID 1 MG TAB PO SCH (10:00)
[2020-04-18] MEDS: predniSONE 5 MG TAB PO SCH (10:00)
[2020-04-18] MEDS: hydrOXYchloroQUINE SULFATE 200 MG TAB PO SCH (10:00)
[2020-04-18] MEDS: PANTOPRAZOLE 40 MG/10 ML VIAL INJ IV SCH (10:00)
[2020-04-18] MEDS: CARVEDILOL 3.125 MG TAB PO SCH ×2 (10:00→22:24)
[2020-04-18] MEDS: CYANOCOBALAMIN 500 MCG TAB PO SCH (10:00)
[2020-04-18 10:59] LABS: Urine Bacteria FEW /hpf (None Seen); Urine Blood 1+ /uL (Negative); Urine Hyaline Cast FEW /lpf (0 - 2); Urine WBC 14 /hpf (0 - 5); Urine WBC Clumps PRESENT /hpf (None Seen)
[2020-04-18] MEDS ORDERED: ERTAPENEM SOD INJ 1 GM in SODIUM CHL 0.9% 50 ML IV ONE (11:30)
[2020-04-18] MEDS ORDERED: POTASSIUM CHL 20 Meq TABLET PO ONE (11:30)
[2020-04-18 12:28] LABS: Hematocrit 24.6 % (36.0-46.0)
[2020-04-18 13:00] VITALS: BP 153/82
[2020-04-18] MEDS: MORPHINE SULF INJ 2 MG/ML SYRINGE 1ML IV PRN (15:00)
[2020-04-18 17:00] VITALS: BP_SYST 103; BP_SYST 146; BP_DIAS 56; BP_DIAS 77
[2020-04-18] MEDS: FERROUS SULFATE 325 MG TAB PO SCH (18:07)
[2020-04-18 22:00] VITALS: BP 150/83
[2020-04-18] MEDS: ATORVASTATIN 20 MG TAB PO SCH (22:23)
[2020-04-18] MEDS: DONEPEZIL HYDROCHLORIDE 5 MG TAB PO SCH (22:24)
[2020-04-18] MEDS: traZODone HCL 50 MG TAB PO SCH (22:24)
[2020-04-19] MEDS: MORPHINE SULF INJ 2 MG/ML SYRINGE 1ML IV PRN (00:45)
[2020-04-19 05:00] VITALS: BP 140/67
[2020-04-19] MEDS: LEVOTHYROXINE SODIUM 25 MCG TAB PO SCH (06:23)
[2020-04-19] MEDS: FERROUS SULFATE 325 MG TAB PO SCH ×2 (08:34→18:17)
[2020-04-19] MEDS: Ensure HIGH Protein Chocolate 8oz Bottle PO SCH ×3 (08:35→18:18)
[2020-04-19 09:00] VITALS: BP 145/81
[2020-04-19] MEDS: ERTAPENEM SOD INJ 1 GM in SODIUM CHL 0.9% 50 ML IV SCH (10:10)
[2020-04-19] MEDS: PANTOPRAZOLE 40 MG/10 ML VIAL INJ IV SCH (10:10)
[2020-04-19] MEDS: FOLIC ACID 1 MG TAB PO SCH (10:11)
[2020-04-19] MEDS: hydrOXYchloroQUINE SULFATE 200 MG TAB PO SCH (10:11)
[2020-04-19] MEDS: busPIRone HCL 10 MG TAB PO SCH ×2 (10:11→21:54)
[2020-04-19] MEDS: CITALOPRAM HYDROBR 20 MG TAB PO SCH (10:12)
[2020-04-19] MEDS: CHOLECALCIFEROL (VITD3) 1,000UNIT=25mCg TAB PO SCH (10:12)
[2020-04-19] MEDS: predniSONE 5 MG TAB PO SCH (10:12)
[2020-04-19] MEDS: CARVEDILOL 3.125 MG TAB PO SCH ×2 (10:13→21:54)
[2020-04-19] MEDS: TOLTERODINE TARTRATE 1 MG TAB PO SCH ×2 (11:15→21:54)
[2020-04-19] MEDS: CYANOCOBALAMIN 500 MCG TAB PO SCH (11:16)
[2020-04-19 13:00] VITALS: BP 130/77
[2020-04-19] MEDS ORDERED: ENOXAPARIN SOD 40 MG/0.4 ML SYRINGE SC ONE (15:00)
[2020-04-19 17:00] VITALS: BP 147/83
[2020-04-19] MEDS: ATORVASTATIN 20 MG TAB PO SCH (21:53)
[2020-04-19] MEDS: traZODone HCL 50 MG TAB PO SCH (21:54)
[2020-04-19] MEDS: DONEPEZIL HYDROCHLORIDE 5 MG TAB PO SCH (21:54)
[2020-04-19 22:00] VITALS: BP 141/74
[2020-04-20] MEDS: LORazepam 0.5 MG TAB PO PRN (00:03)
[2020-04-20] MEDS: ACETAMINOPHEN 325 MG TAB PO PRN (00:36)
[2020-04-20 05:00] VITALS: BP 146/76
[2020-04-20] MEDS: LEVOTHYROXINE SODIUM 25 MCG TAB PO SCH (06:37)
[2020-04-20 09:00] VITALS: BP 143/95
[2020-04-20] MEDS: PANTOPRAZOLE 40 MG/10 ML VIAL INJ IV SCH (09:56)
[2020-04-20] MEDS: busPIRone HCL 10 MG TAB PO SCH (09:57)
[2020-04-20] MEDS: predniSONE 5 MG TAB PO SCH (09:57)
[2020-04-20] MEDS: TOLTERODINE TARTRATE 1 MG TAB PO SCH (09:57)
[2020-04-20] MEDS: hydrOXYchloroQUINE SULFATE 200 MG TAB PO SCH (09:57)
[2020-04-20] MEDS: CYANOCOBALAMIN 500 MCG TAB PO SCH (09:58)
[2020-04-20] MEDS: FOLIC ACID 1 MG TAB PO SCH (09:58)
[2020-04-20] MEDS: FERROUS SULFATE 325 MG TAB PO SCH (09:58)
[2020-04-20] MEDS: CITALOPRAM HYDROBR 20 MG TAB PO SCH (09:58)
[2020-04-20] MEDS: ERTAPENEM SOD INJ 1 GM in SODIUM CHL 0.9% 50 ML IV SCH (09:59)
[2020-04-20] MEDS: CARVEDILOL 3.125 MG TAB PO SCH (09:59)
[2020-04-20] MEDS: Ensure HIGH Protein Chocolate 8oz Bottle PO SCH ×2 (09:59→12:00)
[2020-04-20] MEDS: CHOLECALCIFEROL (VITD3) 1,000UNIT=25mCg TAB PO SCH (09:59)
[2020-04-20] MEDS ORDERED: ENOXAPARIN SOD 40 MG/0.4 ML SYRINGE SC SCH (10:00)
[2020-04-20 11:08] VITALS: BP 143/95
== END 2020-04-20 13:52 | disposition home health service (06) | DRG 371 ==
LOC: EDBD 14:43 → EDUNIT# 14:43 → ER 14:43 → TELE 14:44 → TELE-WESTW 23:05
PROVIDERS: ADMIT Hospitalist; ATTEND Internal Medicine Nephrology
PROC: 30233N1 Transfusion of Nonautologous Red Blood Cells into Peripheral Vein, Percutaneous Approach (ICD-10-PCS; principal; 2020-04-08)
PROC: 0F9130Z Drainage of Right Lobe Liver with Drainage Device, Percutaneous Approach (ICD-10-PCS; 2020-04-10)
PROC: 30233K1 Transfusion of Nonautologous Frozen Plasma into Peripheral Vein, Percutaneous Approach (ICD-10-PCS; 2020-04-10)
PROC: 0T9030Z Drainage of Right Kidney with Drainage Device, Percutaneous Approach (ICD-10-PCS; 2020-04-10)
DX: K65.1 Peritoneal abscess (principal); N15.1 Renal and perinephric abscess; R53.2 Functional quadriplegia; I21.A1 Myocardial infarction type 2; E43 Unspecified severe protein-calorie malnutrition; N17.0 Acute kidney failure with tubular necrosis; K75.0 Abscess of liver; I13.0 Hypertensive heart and chronic kidney disease with heart failure and stage 1 through stage 4 chronic kidney disease, or unspecified chronic kidney disease; D61.818 Other pancytopenia; E87.2 Acidosis; I50.42 Chronic combined systolic (congestive) and diastolic (congestive) heart failure; Z16.12 Extended spectrum beta lactamase (ESBL) resistance; R62.7 Adult failure to thrive; I50.82 Biventricular heart failure; I27.20 Pulmonary hypertension, unspecified; F03.90 Unspecified dementia, unspecified severity, without behavioral disturbance, psychotic disturbance, mood disturbance, and anxiety; E87.6 Hypokalemia; K76.0 Fatty (change of) liver, not elsewhere classified; N39.3 Stress incontinence (female) (male); N18.30 Chronic kidney disease, stage 3 unspecified; F32.9 Major depressive disorder, single episode, unspecified; E16.2 Hypoglycemia, unspecified; E78.5 Hyperlipidemia, unspecified; B96.20 Unspecified Escherichia coli [E. coli] as the cause of diseases classified elsewhere; E03.9 Hypothyroidism, unspecified; F41.9 Anxiety disorder, unspecified; I25.10 Atherosclerotic heart disease of native coronary artery without angina pectoris; M06.9 Rheumatoid arthritis, unspecified; Z79.899 Other long term (current) drug therapy; Z82.5 Family history of asthma and other chronic lower respiratory diseases; Z20.828 Contact with and (suspected) exposure to other viral communicable diseases; Z88.1 Allergy status to other antibiotic agents; Z88.5 Allergy status to narcotic agent; Z88.8 Allergy status to other drugs, medicaments and biological substances
CPT/HCPCS: 10022; 36415; 70450; 71045; 73630; 74150; 74176; 74177; 74181; 76705; 77012; 80048; 80053; 80061; 80202; 81001; 82105; 82270; 82378; 82565; 82607; 82746; 82962; 83010; 83036; 83516; 83540; 83550; 83615; 83735; 83880; 84100; 84443; 84484; 85007; 85014; 85018; 85025; 85027; 85045; 85610; 85730; 86225; 86235; 86704; 86706; 86708; 86803; 86850; 86870; 86880; 86900; 86901; 86902; 86922; 87040; 87077; 87081; 87086; 87186; 87205; 87340; 89051; 93005; 93306; 93970; 96361; 96365; 96367; 96372; 96375; 97110; 97530; C1729; C9113; G0378; J1335; J2001; J2185; J2250; J2405; J2543; J3430; J7042